=== PATIENT | female | born 1940 | race Caucasian/White ===

== ENCOUNTER 2020-02-24 03:12 | Outpatient (CLI) | payer MEDICARE, OTHER, SELFPAY ==
--- NOTE | 2020-02-24 | DI.US_ITS ---
EXAM: US RENAL CLINICAL HISTORY: RECURRENT UTI,H/O LYMPHOMA,N39.0 TECHNIQUE: Ultrasound of both kidneys performed using standard protocol. COMPARISON: No exams were available for comparison FINDINGS: RIGHT KIDNEY: Measures 9.1 cm in length. No cysts evident. Normal cortical thickness and corticomedullary different iation .No solid masses No intrarenal calculi nor hydronephrosis. LEFT KIDNEY: Measures 10.7 cm in length. No cysts evident. Normal cortical thickness and corticomedullary differe ntiaion. No solids masses. No intrarenal calculi nor hydonephrosis. URINARY BLADDER: Prevoid volume is 54 cc Postvoid volume is 65 cc It appears that the patient was not able to void adequately No evidence of obvious bladder mass or diverticuli. Ureterovesical jets: Both were not identified. IMPRESSION: 1. No significant ultrasound findings in the kidneys. 2. The amount of urine in the urinary bladder postvoid is higher than prevoid, this implying difficu lty in urination.. DATA REPOSITORY:
== END 2020-02-24 03:32 ==
PROVIDERS: PCP Internal Medicine; Visit Provider Nurse Practitioner Family
DX: N39.0 Urinary tract infection, site not specified (principal); R39.198 Other difficulties with micturition; Z85.79 Personal history of other malignant neoplasms of lymphoid, hematopoietic and related tissues
CPT/HCPCS: 76770

== ENCOUNTER → 2020-03-09 12:55 | Outpatient (BNVA) | payer MEDICARE, OTHER, SELFPAY | PROVIDERS: PCP Internal Medicine; Referring Provider Internal Medicine; Visit Provider Nurse Practitioner Gerontology | DX: R35.0 Frequency of micturition (principal); R31.29 Other microscopic hematuria; N39.0 Urinary tract infection, site not specified | CPT/HCPCS: 81003; 99204 ==

== ENCOUNTER 2020-03-09 19:13 | Outpatient (REF) | payer MEDICARE, OTHER, SELFPAY ==
[2020-03-09 17:27] LABS: Bilirubin Negative (Negative); Blood Moderate (Negative); Clarity Cloudy (Clear); Glucose Negative (Negative); Ketones Negative (Negative); Leukocyte Esterase Moderate (Negative); Nitrite Positive (Negative); Urobilinogen 0.2 EU/dL (Up TO 0.2)
[2020-03-09 17:38] LABS: Bacteria Many HPF (Negative); WBC >50 HPF (0-5)
[2020-03-09 17:39] LABS: C & S Indicated? C&S Done As Ordered
== END 2020-03-09 19:33 ==
LOC: LBN 19:13
PROVIDERS: PCP Internal Medicine; Visit Provider Nurse Practitioner Gerontology
DX: R35.0 Frequency of micturition (principal); R31.29 Other microscopic hematuria
CPT/HCPCS: 87077; 81003; 81015; 87086; 87186

== ENCOUNTER → 2020-04-04 10:38 | Outpatient (BNVA) | payer MEDICARE, OTHER, SELFPAY | PROVIDERS: PCP Nurse Practitioner Family; Referring Provider Internal Medicine; Visit Provider Nurse Practitioner Gerontology | DX: N39.0 Urinary tract infection, site not specified (principal); Z87.440 Personal history of urinary (tract) infections | CPT/HCPCS: 81003; 99214 ==

== ENCOUNTER 2020-04-04 22:08 | Outpatient (REF) | payer MEDICARE, OTHER, SELFPAY | END 2020-04-04 22:09 | disposition home or self-care (01) | LOC: NCHCN 22:08 | PROVIDERS: PCP Nurse Practitioner Family; Visit Provider Nurse Practitioner Gerontology | DX: N39.0 Urinary tract infection, site not specified (principal) | CPT/HCPCS: 87077; 87086; 87186 ==

== ENCOUNTER → 2020-04-25 15:02 | Outpatient (BNVA) | payer MEDICARE, OTHER, SELFPAY | PROVIDERS: PCP Nurse Practitioner Family; Referring Provider Nurse Practitioner Family; Visit Provider Nurse Practitioner Gerontology | DX: R35.0 Frequency of micturition (principal); N39.0 Urinary tract infection, site not specified | CPT/HCPCS: 81003; 99213 ==

== ENCOUNTER 2020-04-25 17:05 | Outpatient (REF) | payer MEDICARE, OTHER, SELFPAY | END 2020-04-25 17:06 | disposition home or self-care (01) | LOC: LBN 17:05 | PROVIDERS: PCP Nurse Practitioner Family; Visit Provider Nurse Practitioner Gerontology | DX: N39.0 Urinary tract infection, site not specified (principal) | CPT/HCPCS: 87086 ==

== ENCOUNTER → 2020-06-27 14:59 | Outpatient (BNVA) | payer MEDICARE, OTHER, SELFPAY | PROVIDERS: PCP Nurse Practitioner Family; Referring Provider Nurse Practitioner Family; Visit Provider Nurse Practitioner Gerontology | DX: N39.0 Urinary tract infection, site not specified (principal); R31.29 Other microscopic hematuria | CPT/HCPCS: 81003; 99214 ==

== ENCOUNTER 2020-06-27 16:22 | Outpatient (REF) | payer MEDICARE, OTHER, SELFPAY ==
[2020-06-27 16:17] LABS: Bilirubin Negative (Negative); Blood Small (Negative); Clarity Cloudy (Clear); Glucose Negative (Negative); Ketones Negative (Negative); Leukocyte Esterase Moderate (Negative); Nitrite Negative (Negative); Specific Gravity 1.025 (1.005-1.025); Urobilinogen 0.2 EU/dL (Up TO 0.2)
[2020-06-27 16:26] LABS: Bacteria Many HPF (Negative); C & S Indicated? C&S Done As Ordered; Casts Negative LPF (Negative); Crystals Negative HPF (Negative); Epithelial Cells Few HPF (Negative); Mucus Negative (Negative); WBC 20-50 HPF (0-5)
== END 2020-06-27 16:23 | disposition home or self-care (01) ==
LOC: LBN 16:22
PROVIDERS: PCP Nurse Practitioner Family; Visit Provider Nurse Practitioner Gerontology
DX: N39.0 Urinary tract infection, site not specified (principal); R31.29 Other microscopic hematuria
CPT/HCPCS: 81003; 81015; 87086

== ENCOUNTER → 2020-09-29 14:14 | Outpatient (BNVA) | payer MEDICARE, OTHER, SELFPAY | PROVIDERS: PCP Nurse Practitioner Family; Referring Provider Nurse Practitioner Family; Visit Provider Nurse Practitioner Gerontology | DX: R35.0 Frequency of micturition (principal); N39.0 Urinary tract infection, site not specified | CPT/HCPCS: 81003; 99214 ==

== ENCOUNTER 2020-09-29 17:22 | Outpatient (REF) | payer MEDICARE, OTHER, SELFPAY | END 2020-09-29 17:23 | disposition home or self-care (01) | LOC: LBN 17:22 | PROVIDERS: PCP Nurse Practitioner Family; Visit Provider Nurse Practitioner Gerontology | DX: N39.0 Urinary tract infection, site not specified (principal) | CPT/HCPCS: 87086 ==

== ENCOUNTER → 2021-02-14 15:28 | Outpatient (BNVA) | payer MEDICARE, OTHER, SELFPAY | PROVIDERS: PCP Nurse Practitioner Family; Visit Provider Nurse Practitioner Gerontology | DX: R35.0 Frequency of micturition (principal); N39.0 Urinary tract infection, site not specified | CPT/HCPCS: 81003; 99214 ==

== ENCOUNTER 2021-02-14 20:39 | Outpatient (REF) | payer MEDICARE, OTHER, SELFPAY | END 2021-02-14 20:40 | disposition home or self-care (01) | LOC: LBN 20:39 | PROVIDERS: PCP Nurse Practitioner Family; Visit Provider Nurse Practitioner Gerontology | DX: N39.0 Urinary tract infection, site not specified (principal) | CPT/HCPCS: 87077; 87086; 87186 ==

== ENCOUNTER → 2021-05-17 14:26 | Outpatient (BNVA) | payer MEDICARE, OTHER, SELFPAY | PROVIDERS: PCP Nurse Practitioner Family; Visit Provider Nurse Practitioner Gerontology | DX: R35.0 Frequency of micturition (principal); N39.0 Urinary tract infection, site not specified | CPT/HCPCS: 51798; 81003; 99214 ==

== ENCOUNTER 2021-05-17 18:33 | Outpatient (REF) | payer MEDICARE, OTHER, SELFPAY ==
[2021-05-17 21:12] LABS: Bilirubin Negative (Negative); Blood Moderate (Negative); Clarity Sl Cloudy (Clear); Glucose Negative (Negative); Ketones Negative (Negative); Leukocyte Esterase Small (Negative); Nitrite Negative (Negative); Specific Gravity 1.025 (1.005-1.025); Urobilinogen 0.2 EU/dL (Up TO 0.2)
[2021-05-17 21:19] LABS: Bacteria Moderate HPF (Negative); C & S Indicated? C&S Done As Ordered; Casts Negative LPF (Negative); Crystals Negative HPF (Negative); Epithelial Cells Few HPF (Negative); Mucus Trace (Negative)
== END 2021-05-17 18:34 | disposition home or self-care (01) ==
LOC: LBN 18:33
PROVIDERS: PCP Nurse Practitioner Acute Care; Visit Provider Nurse Practitioner Gerontology
DX: N39.0 Urinary tract infection, site not specified (principal); R35.0 Frequency of micturition
CPT/HCPCS: 87077; 81003; 81015; 87086

== ENCOUNTER → 2021-11-14 14:59 | Outpatient (BNVA) | payer MEDICARE, OTHER, SELFPAY | PROVIDERS: PCP Nurse Practitioner Acute Care; Referring Provider Nurse Practitioner Acute Care; Visit Provider Nurse Practitioner Gerontology | DX: N39.0 Urinary tract infection, site not specified (principal) | CPT/HCPCS: 51798; 81003; 99214 ==

== ENCOUNTER 2021-11-14 18:24 | Outpatient (REF) | payer MEDICARE, OTHER, SELFPAY | END 2021-11-14 18:25 | disposition home or self-care (01) | LOC: LBN 18:24 | PROVIDERS: PCP Nurse Practitioner Acute Care; Visit Provider Nurse Practitioner Gerontology | DX: N39.0 Urinary tract infection, site not specified (principal) | CPT/HCPCS: 87086 ==

== ENCOUNTER → 2022-05-15 15:31 | Outpatient (BNVA) | payer MEDICARE, OTHER, SELFPAY | PROVIDERS: PCP Nurse Practitioner Acute Care; Visit Provider Nurse Practitioner Gerontology | DX: Z09 Encounter for follow-up examination after completed treatment for conditions other than malignant neoplasm (principal); Z87.440 Personal history of urinary (tract) infections | CPT/HCPCS: 81003; 99213 ==

== ENCOUNTER → 2022-11-20 10:31 | Outpatient (BNVA) | payer MEDICARE, OTHER, SELFPAY | PROVIDERS: PCP Nurse Practitioner Acute Care; Referring Provider Nurse Practitioner Acute Care; Visit Provider Nurse Practitioner Gerontology | DX: N39.0 Urinary tract infection, site not specified (principal) | CPT/HCPCS: 81003; 99213 ==

== ENCOUNTER → 2023-05-22 09:42 | Outpatient (BNVA) | payer MEDICARE, OTHER, SELFPAY | PROVIDERS: PCP Nurse Practitioner Acute Care; Referring Provider Nurse Practitioner Acute Care; Visit Provider Nurse Practitioner Gerontology | DX: N39.0 Urinary tract infection, site not specified (principal) | CPT/HCPCS: 99213 ==

== ENCOUNTER 2023-09-29 17:06 | Inpatient (IN) | payer MEDICARE, OTHER, SELFPAY ==
[2023-09-29] VITALS (18 sets, daily range): BP systolic 137–170; BP diastolic 68–128; PULSE 71–100; RESP 16–18; TEMP 36.3–36.4; O2SAT 91–98
--- NOTE | 2023-09-29 17:30 | DI.RAD_ITS ---
Exam(s) XR KNEE RT 2V AP,LAT EXAM: XR KNEE RT 2V AP,LAT CLINICAL HISTORY: Fall, pain. TECHNIQUE: 2D digital imaging was performed. Three views. COMPARISON: No exams were available for comparison FINDINGS: BONES: Old proximal fibular fracture. Patella appears to be resected. No acute fracture is present. No bony destructive lesion is seen. Bones appear osteoporotic. JOINTS: Advanced degenerative changes at the medial femoral tibial joint. Flattening of the tibial s pines. No joint effusion is seen. SOFT TISSUE: Anterior soft tissue swelling. IMPRESSION: Degenerative and postsurgical changes. No acute abnormality. DATA REPOSITORY: RADIATION DOSE DELIVERED:
--- NOTE | 2023-09-29 17:30 | DI.CT_ITS ---
Exam(s) CT PELVIC WO EXAM: CT PELVIC WO CLINICAL HISTORY: Fall, L. hip pain. TECHNIQUE: Imaging Protocol: Axial computed tomography images with coronal and sagittal reformatted images were created and reviewed. CONTRAST MATERIAL: Oral: no COMPARISON: No exams were available for comparison FINDINGS: Bladder: Decompressed by Michael catheter. Bowel: No obstruction or bowel wall thickening. Sigmoid diverticulosis. Peritoneal cavity: No ascites, collection or mesenteric inflammatory response. Reproductive: Unremarkable. Bones: Nondisplaced intertrochanteric fracture of the left femur. No additional pelvic fractures. Adv anced degenerative changes of the lumbar spine. Soft tissues: Hematoma posterior to left femoral neck region. Fatty containing periumbilical herni a. IMPRESSION: Nondisplaced intertrochanteric fracture of the left femur. RADIATION DOSE DELIVERED: Total DLP DATA REPOSITORY: All CT scans at this facility are submitted to the National Radiology Data Registry (NRDR) Dose Index Registry (DIR) with the [employer] (ACR). RADIATION OPTIMIZATION: All CT scans at this facility use at least one of these dose optimization te chniques: automated exposure control; mA and/or kV adjustment per patient size (includes targeted exa ms where dose is matched to clinical indication); or iterative reconstruction.
--- NOTE | 2023-09-29 17:30 | DI.RAD_ITS ---
Exam(s) XR KNEE LT 2V AP,LAT EXAM: XR KNEE LT 2V AP,LAT CLINICAL HISTORY: Fall, pain. TECHNIQUE: 2D digital imaging was performed. Three views. COMPARISON: CR,XR XR KNEE RT 2V AP,LAT from 09/29/2023 FINDINGS: BONES: No acute fracture is present. No bony destructive lesion is seen. JOINTS: Total knee prosthesis is unremarkable. The knee is normally aligned. No joint effusion is se en. SOFT TISSUE: Normal. IMPRESSION: Total knee prosthesis. No acute abnormality. DATA REPOSITORY: RADIATION DOSE DELIVERED:
--- NOTE | 2023-09-29 17:30 | DI.CT_ITS ---
Exam(s) CT HEAD CERVICAL SPINE WO EXAM: CT HEAD CERVICAL SPINE WO CLINICAL HISTORY: Fall, ? anticoagulation. TECHNIQUE: Imaging Protocol: Axial computed tomography images with coronal and sagittal reformatted images were created and reviewed COMPARISON: No exams were available for comparison FINDINGS: Head CT Ventricles and Extra axial spaces: Normal in size and morphology for the patient's age. Hemorrhage: None. Cerebral parenchyma: No evidence of mass or acute infarct. Atrophy. White matter changes of small vessel disease. Midline shift: None. Brainstem/Cerebellum: Normal. Calvarium: Normal. Visualized Paranasal sinuses/Mastoids: Small amount of mucous retention in posterior right ethmoid ai r cell as well as right sphenoid sinus. Soft tissues: Hearing aids create mild artifact. Cervical Spine CT BONES: Vertebral body heights are maintained. Degenerative mild retrolisthesis at C3-4. there is no e vidence of acute cervical spine fracture. Right nasal fracture, likely old. Old fracture of the med ial right wall of the right orbit.. Degenerative disc changes and facet degenerative changes are seen . SOFT TISSUES: No paraspinal hematoma. The airway appears intact. IMPRESSION: Head CT: No acute abnormality. C-spine CT: Degenerative changes, no acute abnormality. RADIATION DOSE DELIVERED: Total DLP DATA REPOSITORY: All CT scans at this facility are submitted to the National Radiology Data Registry (NRDR) Dose Index Registry (DIR) with the [employer] (ACR). RADIATION OPTIMIZATION: All CT scans at this facility use at least one of these dose optimization te chniques: automated exposure control; mA and/or kV adjustment per patient size (includes targeted exa ms where dose is matched to clinical indication); or iterative reconstruction.
--- NOTE | 2023-09-29 17:48 | W.ED.GENAD ---
Discharge Plan Disposition Patient Disposition: Admit to [facility] Condition: Stable Discharge Details Chief Complaint: Fall/Non TraumaCriteria Clinical Impression: Recurrent urinary tract infection, Intertrochanteric fracture of left hip, PAF (paroxysmal atrial fibrillation) Admit Date/Time: 09/29/23 21:01 Admit Provider: Valentín Garay Attending Provider: Valentín Garay Primary Care Provider: Christine Brunner ED Provider: Helen Luo HPI General Mode of arrival: EMS. Date/Time Provider Initiated Documentation: 09/29/23 17:14. Limitations to Documentation: no limitations. Information obtained by: patient, family and EMS. HPI Narrative: MDM: In brief, this is an 83-year-old female patient presenting for evaluation after a fall. Differential includes but is not limited to head injury including intracranial hemorrhage due to the patient's anticoagulated status, certainly considered skull fracture and spinal fracture. I am most concerned for a left hip fracture, but also considered injury to the knees, dislocation, ligamentous injury, contusion. Reassuringly, this fall appears to be mechanical in nature, and the patient did not have any preceding dizziness, chest pain, or loss of consciousness to suggest syncope, orthostasis, ACS, arrhythmia, or stroke. We will obtain imaging to include CT of the head, C-spine, and pelvis. I will obtain x-ray imaging of the affected left hip, femur, and bilateral knees. I provided the patient with a dose of Tylenol for initial symptomatic management of pain. ED Course: I independently interpreted the laboratory studies, which show no significant leukocytosis, anemia, or thrombocytopenia. The chemistry panel is without evidence of electrolyte abnormality, kidney dysfunction, or liver injury. Troponin is negative, TSH is within normal limits, but the patient's UA does appear infectious. For this reason I did provide her with a dose of ceftriaxone. Independently interpreted the patient's imaging, she has evidence of an intertrochanteric fracture of the left femur. Her CT of her head and C-spine were without intracranial hemorrhage or acute fracture, and the x-rays of her knees showed no acute abnormalities to account for her pain. I reached out to the orthopedic team who has graciously agreed to perform surgery here in the hospital tomorrow. They do request that her apixaban be held and she be given a gram of TXA for bleeding prevention. I evaluated her EKG which does show atrial fibrillation. I reached out to the hospitalist team who is graciously accepted her for admission to their service for ongoing workup and management of her injury and her UTI. The patient remained hemodynamically appropriate while under my care, and she was transferred from this department to the floor without incident. Helen Luo MD HPI: This is an 83-year-old female patient with a past medical history significant for atrial fibrillation on apixaban, urinary tract infections, hypothyroidism, presenting for evaluation with EMS after a fall. The patient reports that she does not quite remember why she fell but thinks it was due to her large slippers that she was wearing, states that she tripped and landed on her bottom. She did not lose consciousness and this event was not preceded by any chest pain, dizziness, or loss of consciousness. She did not lose consciousness at any time during this event, is not sure if she struck her head or not. The patient is experiencing pain in her very low back and left hip, as well as her bilateral knees. Prior to this event she was in her normal state of health, she is not experiencing any other symptoms or complaints at this time. Exam: Gen: Awake and alert, in no apparent distress HEENT: Non-icteric sclera, pupils equal and reactive. Scalp is atraumatic Neck: Supple, no midline cervical spine tenderness or step-offs Lungs: No apparent respiratory distress, normal respiratory effort. CV: Appears well perfused, strong and symmetrical distal pulses Abdomen: Non-distended, soft, nontender to palpation MSK: No tenderness to palpation of the T or L-spine, patient has tenderness to palpation of the left hip, with decreased range of motion of the left lower extremity due to pain. The bilateral knees are tender to palpation but she has strong CSM's distal to both of those injuries, symmetrical bilaterally. Skin: Visualized skin without rashes, cyanosis. Neuro: no obvious focal deficits or facial asymmetry. Speaks in full, clear sentences. Psych: Appropriate for situation. Related Data Home Medications ?Medication ?Instructions ?Recorded ?Confirmed acetaminophen 650 mg 1,300 mg PO Q12H 11/17/19 06/14/23 tablet,extended release (Tylenol 8 Hour) ascorbate calcium (vitamin C) 500 600 mg PO DAILY 11/17/19 06/14/23 mg tablet cholecalciferol (vitamin D3) 10 10 mcg PO DAILY 11/17/19 06/14/23 mcg (400 unit) capsule cranberry 400 mg capsule 400 mg PO DAILY 11/17/19 06/14/23 ibuprofen 200 mg tablet 200 mg PO Q6H PRN 11/17/19 06/14/23 levothyroxine 200 mcg tablet 200 mcg PO DAILY 11/17/19 06/14/23 (Synthroid) selenium sulfide 2.25 % shampoo 1 applic topical .weekly 11/17/19 06/14/23 triamcinolone acetonide 0.1 % 1 applic topical BID 11/17/19 06/14/23 topical cream Al hyd-Mg tr-alg ac-sod bicarb 80 tab PO 05/15/22 06/14/23 mg-14.2 mg chewable tablet (Gaviscon) famotidine 20 mg tablet 20 mg PO BID 05/15/22 06/14/23 apixaban 5 mg tablet (Eliquis) 5 mg PO BID 11/20/22 06/14/23 cephalexin 250 mg tablet 125 mg (1/2 x 250 mg) PO QHS #45 11/20/22 06/14/23 tabs diltiazem HCl 120 mg capsule,24 120 mg PO DAILY 11/20/22 06/14/23 hr,extended release mecobalamin (vitamin B12) 1,000 1,000 mcg PO DAILY 05/22/23 06/14/23 mcg chewable tablet (B12 Active) ferrous sulfate 325 mg (65 mg 325 mg PO DAILY 06/14/23 06/14/23 iron) tablet (Feosol) Previous Rx's ?Medication ?Instructions ?Recorded cephalexin 250 mg tablet 125 mg (1/2 x 250 mg) PO QHS #45 11/20/22 tabs Allergies Allergy/AdvReac Type Severity Reaction Status Date / Time chocolate flavor Allergy red/itchy Verified 09/29/23 17:15 eyes lisinopril Allergy cough Verified 09/29/23 17:15 General Stated Complaint: Fall/Non TraumaCriteria SINCERE: 3 Course Vital Signs Vital signs: Vital Signs Temperature 36.4 C L 09/29/23 17:10 Pulse 71 09/29/23 17:10 Respiratory Rate 18 09/29/23 17:10 Blood Pressure 137/68 09/29/23 17:10 Pulse Oximetry 93 09/29/23 17:10 Temperature 36.4 C L 09/29/23 17:10 Temperature Source Skin 09/29/23 17:10 Pulse 71 09/29/23 17:10 Respiratory Rate 18 09/29/23 17:10 Blood Pressure 137/68 09/29/23 17:10 Blood Pressure Position Supine 09/29/23 17:10 Pulse Oximetry 93 09/29/23 17:10 Oxygen Delivery Method Room Air 09/29/23 17:10 Oxygen Flow Rate 0 09/29/23 17:10 Medical Decision Making Quality:SDOH Health Related Social Needs: No Data to Display PFSH All Active Problems (Updated 09/29/23 @ 23:20 by Helen Luo MD) Hypokalemia (Acute) PAF (paroxysmal atrial fibrillation) (Chronic) Intertrochanteric fracture of left hip (Acute 09/29/23) Cerumen impaction (Acute) Sensorineural hearing loss (Acute) Urinary frequency (Acute) Recurrent urinary tract infection (Acute) Medical History Blood glucose abnormal Abdominal tenderness Syncope Degeneration of lumbar intervertebral disc Cervical spondylosis Osteoarthritis Hyperkeratosis Psoriasis Dysuria Post-mastectomy lymphedema syndrome Hypertensive disorder Mixed hyperlipidemia Hypothyroidism Goiter Malignant lymphoma Carcinoma of thyroid Basal cell carcinoma Surgical History H/O basal cell carcinoma excision History of lymph node dissection of axilla H/O thyroidectomy H/O partial mastectomy History of left knee replacement Social History Smoking/Tobacco Use Status: Never Smoking risk assessment performed?: Yes Alcohol Intake: never Drug use: Never Substance use type: does not use Housing: house
[2023-09-29 18:11] LABS: Abs Immature Grans 0.12 10^3/uL (0.0-0.06); Absolute Basophil Count 0.07 10^3/uL (0.0-0.2); Absolute Eosinophil Count 0.04 10^3/uL (0.0-0.7); Absolute Lymphocyte Count 1.54 10^3/uL (1.2-3.4); Absolute Monocyte Count 1.18 10^3/uL (0.1-0.8); Basophils % 0.6 %; Eosinophils % 0.4 %; HCT 37.4 % (36.0-46.0); HGB 11.9 g/dL (11.2-15.7); Immature Grans % 1.1 %; Lymphocytes % 13.8 %; MCH 30.4 pg (27.0-33.0); MCHC 31.8 % (32.0-36.0); MCV 96 fL (80-95); MPV 10.5 fL (8.0-11.0); Monocytes % 10.6 %; Neutrophils % 73.5 %; Nucleated RBC 0.2 % (0.0-0.3); Platelet Count 344 10^3/uL (130-400); RBC 3.91 10^6/uL (3.93-5.22); RDW 17.2 % (11.7-14.6); RDW-SD 59.8 fL; WBC 11.17 10^3/uL (4.4-10.8)
[2023-09-29 18:12] LABS: Absolute Neutrophil Count 8.21 10^3/uL (1.2-6.7)
[2023-09-29 18:18] LABS: Prothrombin Time 10.4 sec (9.1-11.1)
[2023-09-29 18:19] LABS: Bilirubin Negative (Negative); Blood Moderate (Negative); Clarity Cloudy (Clear); Glucose Negative (Negative); Ketones Negative (Negative); Leukocyte Esterase Moderate (Negative); Nitrite Negative (Negative); Urobilinogen 0.2 mg/dL (Up to 0.2); pH 6.5 (5-8)
[2023-09-29 18:23] LABS: ALT 15 U/L (14-59); AST 19 U/L (15-37); Albumin 3.3 g/dL (3.4-5.0); Alkaline Phosphatase 100 U/L (46-116); Anion Gap 9.8 mmol/L (3-11); BUN 20 mg/dL (7-18); Bilirubin, Total 0.37 mg/dL (0.2-1.0); CO2 28.2 mmol/L (21.0-32.0); CREATININE 1.1 mg/dL (0.55-1.02); Calcium 9.3 mg/dL (8.5-10.1); Chloride 105 mmol/L (98-107); Estimated GFR 49.55 (mL/min/1.73m2); Glucose 125 mg/dL (74-106); Magnesium 1.8 mg/dL (1.8-2.4); Potassium 3.3 mmol/L (3.5-5.1); Sodium 143 mmol/L (136-145); Total Protein 7.7 g/dL (6.4-8.2); Troponin I < 50 ng/L (< or =60)
[2023-09-29 18:27] LABS: Bacteria Rare HPF (Negative); C & S Indicated? Yes; Crystals Negative HPF (Negative); Epithelial Cells Few HPF (Negative); Mucus Negative (Negative); RBC 20-50 HPF (0-2); WBC >50 HPF (0-5)
--- NOTE | 2023-09-29 20:16 | DI.RAD_ITS ---
Exam(s) XR HIP LT AP LAT ONLY EXAM: XR HIP LT AP LAT ONLY CLINICAL HISTORY: Fall, R. hip pain. TECHNIQUE: 2D digital imaging was performed. Two views. COMPARISON: CT CT PELVIC WO from 09/29/2023 FINDINGS: BONES: Nondisplaced fracture of the intertrochanteric region of left femur. No bony destructive lesi on is seen. JOINTS: No dislocation present. Hip joint space is maintained. Mild acetabular spurring. SOFT TISSUE: Normal. IMPRESSION: Nondisplaced intertrochanteric fracture of the left femur. DATA REPOSITORY: RADIATION DOSE DELIVERED:
--- NOTE | 2023-09-29 20:23 | W.ORTHOCONSU ---
Date of service: 09/30/23 Time of Service: 10:59 Assessment and Plan Assessment and plan (1) Intertrochanteric fracture of left hip: Status: Acute Assessment and plan: 83 year old female with Left intertrochanteric hip fx Medical admission and optimization for surgery Hold ELQ. 1g TXA now to minimize bleeding. TEDs and/or SCDs. Plan on surgery tomorrow: Left hip intramedullary nailing Will d/w hospitalist and [employer] Reviewed with ER doctor Update?reviewed injury and treatment options with patient, son, and [id number]. Isolated left hip injury. Previous ambulatory without assist device. No pre-existing left hip problems. Low back bilateral knee discomfort chronically from prior injuries and surgeries. Some complaints of left shoulder discomfort although has good range of motion and no notable ecchymosis or edema. Will minimize bleeding/bruising risk with additional 1 g TXA prior to procedure as well as local anesthetic with bupivacaine about the surgical sites. The risks, benefits, and alternatives were thoroughly discussed. Patient was counseled regarding pain management, expected postoperative course, and recovery timeline. All questions were answered. Informed consent was obtained. Patient and family agree and understand treatment plan. PFSH All Active Problems Hypokalemia (Acute) PAF (paroxysmal atrial fibrillation) (Chronic) Intertrochanteric fracture of left hip (Acute 09/29/23) Cerumen impaction (Acute) Sensorineural hearing loss (Acute) Urinary frequency (Acute) Recurrent urinary tract infection (Acute) Medical History Blood glucose abnormal Abdominal tenderness Syncope Degeneration of lumbar intervertebral disc Cervical spondylosis Osteoarthritis Hyperkeratosis Psoriasis Dysuria Post-mastectomy lymphedema syndrome Hypertensive disorder Mixed hyperlipidemia Hypothyroidism Goiter Malignant lymphoma Carcinoma of thyroid Basal cell carcinoma Surgical History H/O basal cell carcinoma excision History of lymph node dissection of axilla H/O thyroidectomy H/O partial mastectomy History of left knee replacement Social History Smoking/Tobacco Use Status: Never Smoking risk assessment performed?: Yes Alcohol Intake: never Drug use: Never Substance use type: does not use Housing: house Results Last Vital Signs Temp 97.5 F L 09/29/23 17:10 Pulse 71 09/29/23 17:10 Resp 18 09/29/23 17:10 BP 137/68 09/29/23 17:10 Pulse Ox 93 09/29/23 17:10 Labs 09/30/23 06:12 09/30/23 06:12 Labs: Laboratory Results - last 24 hr 09/29/23 09/29/23 17:54 18:10 WBC 11.17 H RBC 3.91 L Hgb 11.9 Hct 37.4 MCV 96 H MCH 30.4 MCHC 31.8 L RDW 17.2 H Plt Count 344 MPV 10.5 Immature Gran % 1.1 Neutrophils % 73.5 Lymphocytes % 13.8 Monocytes % 10.6 Eosinophils % 0.4 Basophils % 0.6 Nucleated RBC % 0.2 Absolute Neutrophils 8.21 H Absolute Lymphocytes 1.54 Absolute Monocytes 1.18 H Absolute Eosinophils 0.04 Absolute Basophils 0.07 PT 10.4 INR 1.0 Sodium 143 Potassium 3.3 L Chloride 105 Carbon Dioxide 28.2 Anion Gap 9.8 BUN 20 H Creatinine 1.1 H Est GFR (CKD-EPI 2020) 49.55 Glucose 125 H Calcium 9.3 Magnesium 1.8 Total Bilirubin 0.37 AST 19 ALT 15 Alkaline Phosphatase 100 Troponin I < 50 Total Protein 7.7 Albumin 3.3 L Urine Color Yellow Urine Clarity Cloudy Urine pH 6.5 Ur Specific [place] 1.020 Urine Protein 100 H Urine Ketones Negative Urine Blood Moderate H Urine Nitrite Negative Urine Bilirubin Negative Urine Urobilinogen 0.2 Ur Leukocyte Esterase Moderate H Urine RBC 20-50 H Urine WBC >50 H Ur Epithelial Cells Few Urine Crystals Negative Urine Bacteria Rare Urine Mucus Negative Ur Culture Indicated? Yes Urine Glucose Negative
[2023-09-29] MEDS: cefTRIAXone 1 GM/50 ML BAG IVPB (20:30)
--- NOTE | 2023-09-29 20:49 | DI.VRAD_ITS ---
PROCEDURE INFORMATION: Exam: CT Head Without Contrast Exam date and time: 09/29/2023 7:25 PM Age: 83 years old Clinical indication: Fall TECHNIQUE: Imaging protocol: Computed tomography of the head without contrast. COMPARISON: No relevant prior studies available. FINDINGS: Brain: A few scattered small areas of decreased density in the periventricular white matter which are likely secondary to chronic ischemia from microvascular change. No acute intracranial hemorrhage. Diffuse cerebral atrophy. Cerebral ventricles: Ventricular prominence in this patient with diffuse cerebral atrophy. Paranasal sinuses: Partial right sphenoid and posterior right ethmoid sinusitis. Mastoid air cells: Normally aerated mastoid air cells. Bones: No acute fracture. Soft tissues: Unremarkable. Vasculature: Arterial calcifications. IMPRESSION: 1. No acute fracture. 2. No acute intracranial findings. PROCEDURE INFORMATION: Exam: CT Cervical Spine Without Contrast Exam date and time: 09/29/2023 7:25 PM Age: 83 years old Clinical indication: Fall TECHNIQUE: Imaging protocol: Computed tomography of the cervical spine without contrast. COMPARISON: No relevant prior studies available. FINDINGS: Bones: No acute fracture. No subluxation. Slight degenerative retrolisthesis of C4 with respect to C3. No significant disc protrusion. No severe spinal canal stenosis. Cervical spine multilevel degenerative / spondylitic changes with multilevel neural foraminal narrowing. Lungs: The majority a lung apices are not included on the images. Soft tissues: Unremarkable. IMPRESSION: No acute fracture or subluxation. Dictated and Authenticated by: Kenneth Hendricks MD. Ordering:DWIGHT Huber MD
--- NOTE | 2023-09-29 20:54 | W.PM.HP.N ---
Date of service: 09/29/23 Time of Service: 20:54 Assessment and Plan Assessment and plan (1) Intertrochanteric fracture of left hip: Start date: 09/29/23 Status: Acute Assessment and plan: This is an 83-year-old lady with mechanical fall at home sustaining comminuted left intertrochanteric femoral fracture which appears nondisplaced. She is scheduled for repair in the morning. Eliquis was held and orthopedics consultation is in place from the ED. She will be n.p.o. after midnight. She appears to have no decompensation of her chronic medical problems including atrial fibrillation on anticoagulation. She is a full code. Qualifiers: Encounter type: initial encounter Fracture alignment: nondisplaced Fracture type: closed Qualified Code(s): S72.145A - Nondisplaced intertrochanteric fracture of left femur, initial encounter for closed fracture (2) Recurrent urinary tract infection: Start date: 09/29/23 Status: Acute Assessment and plan: Patient does appear to have a urinary tract infection by urinalysis with Rocephin given in the ED and this will be continued. She does not have any urinary symptoms. (3) Hypokalemia: Start date: 09/29/23 Status: Acute Assessment and plan: Repleted with IV potassium and patient not chronically on diuretic having some cardiac disease. This may be dietary. Trend labs and increase potassium diet at the [place]. (4) PAF (paroxysmal atrial fibrillation): Status: Chronic Assessment and plan: Patient has irregular rhythm presently and apixaban is being held. This will be monitored with cardiac monitoring. Patient is a full code. (5) Hypertensive disorder: Assessment and plan: Continue outpatient medical therapy. Qualifiers: Hypertension type: primary hypertension Qualified Code(s): I10 - Essential (primary) hypertension (6) Hypothyroidism: Assessment and plan: Continue outpatient medical therapy and check TSH. Qualifiers: Hypothyroidism type: acquired Qualified Code(s): E03.9 - Hypothyroidism, unspecified History of Present Illness History of Present Illness Chief Complaint: Mechanical fall with left hip pain Narrative: This is an 83-year-old female patient who states that she lives alone having tripped on her large slippers and hit her bottom with left hip pain after her fall. She was transferred to the ED via EMS. She did not hit her head and she is on apixaban chronically for atrial fibrillation. Imaging in the ED did not reveal any acute cerebral hemorrhage but did reveal comminuted, nondisplaced left intertrochanteric fracture of the femur. Her Eliquis was held and orthopedics did plan on surgery in the morning. Her cardiac evaluation was negative having atrial fibrillation and negative troponins. Patient very hard of hearing and offered no further history. She denies any dizziness or presyncopal symptoms when she tripped and fell at home. She has no focal neurological complaints other than severely decreased hearing acuity. Pain was managed well with patient on bedrest and comfortable at the time of my exam. Her son has given his number for contact if needed. She is a full code. Review of Systems Narrative: 13 point review of systems otherwise unrevealing or stable. PFSH All Active Problems Hypokalemia (Acute) PAF (paroxysmal atrial fibrillation) (Chronic) Intertrochanteric fracture of left hip (Acute 09/29/23) Cerumen impaction (Acute) Sensorineural hearing loss (Acute) Urinary frequency (Acute) Recurrent urinary tract infection (Acute) Medical History Blood glucose abnormal Abdominal tenderness Syncope Degeneration of lumbar intervertebral disc Cervical spondylosis Osteoarthritis Hyperkeratosis Psoriasis Dysuria Post-mastectomy lymphedema syndrome Hypertensive disorder Mixed hyperlipidemia Hypothyroidism Goiter Malignant lymphoma Carcinoma of thyroid Basal cell carcinoma Surgical History H/O basal cell carcinoma excision History of lymph node dissection of axilla H/O thyroidectomy H/O partial mastectomy History of left knee replacement Social History Smoking/Tobacco Use Status: Never Smoking risk assessment performed?: Yes Alcohol Intake: never Drug use: Never Substance use type: does not use Housing: house Meds Allergies and Home Medications Allergies Allergy/AdvReac Type Severity Reaction Status Date / Time chocolate flavor Allergy red/itchy Verified 09/29/23 17:15 eyes lisinopril Allergy cough Verified 09/29/23 17:15 Home Medications ?Medication ?Instructions ?Recorded ?Confirmed ?Type acetaminophen 650 mg 1,300 mg PO Q12H 11/17/19 06/14/23 History tablet,extended release (Tylenol 8 Hour) ascorbate calcium (vitamin C) 500 600 mg PO DAILY 11/17/19 06/14/23 History mg tablet cholecalciferol (vitamin D3) 10 10 mcg PO DAILY 11/17/19 06/14/23 History mcg (400 unit) capsule cranberry 400 mg capsule 400 mg PO DAILY 11/17/19 06/14/23 History ibuprofen 200 mg tablet 200 mg PO Q6H PRN 11/17/19 06/14/23 History levothyroxine 200 mcg tablet 200 mcg PO DAILY 11/17/19 06/14/23 History (Synthroid) selenium sulfide 2.25 % shampoo 1 applic topical .weekly 11/17/19 06/14/23 History triamcinolone acetonide 0.1 % 1 applic topical BID 11/17/19 06/14/23 History topical cream Al hyd-Mg tr-alg ac-sod bicarb 80 tab PO 05/15/22 06/14/23 History mg-14.2 mg chewable tablet (Gaviscon) famotidine 20 mg tablet 20 mg PO BID 05/15/22 06/14/23 History apixaban 5 mg tablet (Eliquis) 5 mg PO BID 11/20/22 06/14/23 History cephalexin 250 mg tablet 125 mg (1/2 x 250 mg) PO QHS #45 11/20/22 06/14/23 Rx tabs diltiazem HCl 120 mg capsule,24 120 mg PO DAILY 11/20/22 06/14/23 History hr,extended release mecobalamin (vitamin B12) 1,000 1,000 mcg PO DAILY 05/22/23 06/14/23 History mcg chewable tablet (B12 Active) ferrous sulfate 325 mg (65 mg 325 mg PO DAILY 06/14/23 06/14/23 History iron) tablet (Feosol) Exam Narrative Exam Narrative: General: Patient appears appropriate for age, very hard of hearing, alert and oriented x 3 as best can be ascertained with her hearing acuity issues. She is comfortable lying still in bed but does complain of exquisite left hip pain with any movement. HEENT: Normocephalic, eyes with pupils equal and reactive to light symmetrically, extraocular movement intact and sclera anicteric. Oropharynx with moist [place]. Neck: Supple without JVD. Lungs: Fair aeration clear to oscillation percussion examined the patient supine and not able to sit up. Back not examined. Breast: Exam deferred. Heart: Irregularly irregular rhythm with normal rate. No appreciable murmur or gallop with distant heart sounds. Abdomen: Slightly obese contour, soft and nontender to palpation without palpable hepatosplenomegaly. Bowel sounds positive all quadrants. Genitalia/rectal: Exam deferred. Skin: Normal color, warm and dry. Extremities: Without clubbing, cyanosis or pitting edema with no edema both lower extremities. Left hip exquisitely tender to any movement. Good cap refill required left lower extremity with foot slightly turned outward and shortened leg. Neuro: Cranial nerves II through XII gross intact with marked decreased hearing acuity, no focalized motor deficits. No tremor. Psych: Normal affect and mood. No normal thought processes manifested. Remote memory intact with recent memory were difficult to ascertain with decreased hearing acuity the patient appears to remember events at home when interviewed by the ED provider. Results Imaging Imaging Studies: Exam: CT Pelvis Without Contrast, Skeleton Exam date and time: 09/29/2023 7:33 PM Age: 83 years old Clinical indication: Condition or disease; Other: Fall, lt hip pain TECHNIQUE: Imaging protocol: Computed tomography of the pelvis without contrast. Exam focused on the skeleton. COMPARISON: US RENAL 02/24/2020 10:28 AM FINDINGS: Limitations: No soft tissue algorithm imaging was provided. Intestine: There is sigmoid diverticulosis but no evidence of diverticulitis or colitis through the visualized portion of the colon. Urinary bladder: The urinary bladder is largely collapsed around a Michael catheter. Bones/joints: There is a comminuted acute essentially nondisplaced intertrochanteric fracture through the proximal left femur. No additional acute fracture or dislocation is seen in the pelvis or at the hip joints. There is prominent degenerative change all visualized lower lumbar levels with loss of disc height, vacuum disc deformities, marginal osteophytes, and facet arthrosis. Soft tissues: There is a 4.6 cm x 5.5 cm fat containing right paramidline ventral hernia at the umbilicus. There is a 2.7 cm x 5.7 cm x 5.3 cm soft tissue hematoma posterior to the proximal left femur. IMPRESSION: Comminuted acute essentially nondisplaced intertrochanteric fracture through the proximal left femur Exam: XR Left Hip Exam date and time: 09/29/2023 8:07 PM Age: 83 years old Clinical indication: Other: Fall TECHNIQUE: Imaging protocol: Radiologic exam of the left hip. Views: 2 or 3 views hip with pelvis when performed. COMPARISON: CT PELVIC WO 09/29/2023 7:33 PM FINDINGS: Bones/joints: Coned-down AP and lateral views of the left hip joint are submitted. A known comminuted acute nondisplaced intertrochanteric fracture is very poorly demonstrated by the plain film exam. Soft tissues: A known soft tissue hematoma posterior to the left hip joint is not visualized. IMPRESSION: Known comminuted acute nondisplaced intertrochanteric fracture very poorly demonstrated by the plain film exam. Exam: XR Left Knee Exam date and time: 09/29/2023 7:57 PM Age: 83 years old Clinical indication: Other: Fall TECHNIQUE: Imaging protocol: Radiologic exam of the left knee. Views: 1 or 2 views. COMPARISON: No relevant prior studies available. FINDINGS: Bones/joints: There is a left knee arthroplasty prosthesis in-situ. There is no evidence of hardware breakage or loosening. There is mild diffuse osteopenia. No acute fracture is seen. Soft tissues: There is apparent soft tissue swelling along the medial aspect of the distal thigh and through the region of the knee. IMPRESSION: Prior left knee arthroplasty. No acute fracture or dislocation seen. Exam: XR Right Knee Exam date and time: 09/29/2023 7:49 PM Age: 83 years old Clinical indication: Other: Fall TECHNIQUE: Imaging protocol: Radiologic exam of the right knee. Views: 3 views. COMPARISON: No relevant prior studies available. FINDINGS: Bones/joints: There is mild diffuse osteopenia. There is an old well-healed fracture through the proximal shaft of the right fibula. No acute fracture or dislocation is seen at the right knee. The patella is not visualized on the right. Prior surgical resection ? Correlation with procedure history is recommended. There is loss of joint space along the medial and lateral patellofemoral compartments with marginal osteophytes in keeping with osteoarthritis. Soft tissues: There is soft tissue swelling along the anterior and medial aspect of the right knee. IMPRESSION: 1. Old fracture through the proximal right fibula. 2. Absent patella. 3. No acute fracture or dislocation seen at the right knee. Exam: CT Head Without Contrast Exam date and time: 09/29/2023 7:25 PM Age: 83 years old Clinical indication: Fall TECHNIQUE: Imaging protocol: Computed tomography of the head without contrast. COMPARISON: No relevant prior studies available. FINDINGS: Brain: A few scattered small areas of decreased density in the periventricular white matter which are likely secondary to chronic ischemia from microvascular change. No acute intracranial hemorrhage. Diffuse cerebral atrophy. Cerebral ventricles: Ventricular prominence in this patient with diffuse cerebral atrophy. Paranasal sinuses: Partial right sphenoid and posterior right ethmoid sinusitis. Mastoid air cells: Normally aerated mastoid air cells. Bones: No acute fracture. Soft tissues: Unremarkable. Vasculature: Arterial calcifications. IMPRESSION: 1. No acute fracture. 2. No acute intracranial findings. PROCEDURE INFORMATION: Exam: CT Cervical Spine Without Contrast Exam date and time: 09/29/2023 7:25 PM Age: 83 years old Clinical indication: Fall TECHNIQUE: Imaging protocol: Computed tomography of the cervical spine without contrast. COMPARISON: No relevant prior studies available. FINDINGS: Bones: No acute fracture. No subluxation. Slight degenerative retrolisthesis of C4 with respect to C3. No significant disc protrusion. No severe spinal canal stenosis. Cervical spine multilevel degenerative / spondylitic changes with multilevel neural foraminal narrowing. Lungs: The majority a lung apices are not included on the images. Soft tissues: Unremarkable. IMPRESSION: No acute fracture or subluxation. Labs 09/29/23 17:54 09/29/23 17:54 Labs: Laboratory Results - last 24 hr 08/18/24 08/18/24 17:54 18:10 WBC 11.17 H RBC 3.91 L Hgb 11.9 Hct 37.4 MCV 96 H MCH 30.4 MCHC 31.8 L RDW 17.2 H Plt Count 344 MPV 10.5 Immature Gran % 1.1 Neutrophils % 73.5 Lymphocytes % 13.8 Monocytes % 10.6 Eosinophils % 0.4 Basophils % 0.6 Nucleated RBC % 0.2 Absolute Neutrophils 8.21 H Absolute Lymphocytes 1.54 Absolute Monocytes 1.18 H Absolute Eosinophils 0.04 Absolute Basophils 0.07 PT 10.4 INR 1.0 Sodium 143 Potassium 3.3 L Chloride 105 Carbon Dioxide 28.2 Anion Gap 9.8 BUN 20 H Creatinine 1.1 H Est GFR (CKD-EPI 2020) 49.55 Glucose 125 H Calcium 9.3 Magnesium 1.8 Total Bilirubin 0.37 AST 19 ALT 15 Alkaline Phosphatase 100 Troponin I < 50 Total Protein 7.7 Albumin 3.3 L Urine Color Yellow Urine Clarity Cloudy Urine pH 6.5 Ur Specific [place] 1.020 Urine Protein 100 H Urine Ketones Negative Urine Blood Moderate H Urine Nitrite Negative Urine Bilirubin Negative Urine Urobilinogen 0.2 Ur Leukocyte Esterase Moderate H Urine RBC 20-50 H Urine WBC >50 H Ur Epithelial Cells Few Urine Crystals Negative Urine Bacteria Rare Urine Mucus Negative Ur Culture Indicated? Yes Urine Glucose Negative Last Vital Signs Temp 36.4 C L 09/29/23 17:10 Pulse 71 09/29/23 17:10 Resp 18 09/29/23 17:10 BP 137/68 09/29/23 17:10 Pulse Ox 93 09/29/23 17:10 Time Spent Time spent with Patient: >75 minutes Time was spent: preparing to see the patient(eg.review tests), obtaining and/or reviewing separately otained hiistory, ordering medications,tests, procedures, referring, communicating with other health manager home healthcare, indepentently interpreting results and care coordination
[2023-09-29] MEDS: Tranexamic Acid 1,000 MG/10 ML VIAL 1000 MG IVP (21:00)
--- NOTE | 2023-09-29 21:15 | RT.EKG_ITS ---
APPROVED REPORT Exam: Resting ECG Reason for Exam: A-fib, surgical clearance Patient Location: E HR:99 bpm ECG Measurements Heart Rate 99 [place]IS [place] [id number] P [id number] QRSd 86 QRS -4 QT 373 T 8 QTc 480 Conclusion Atrial fibrillation, V-rate 83-142 No STEMI
--- NOTE | 2023-09-29 21:21 | DI.VRAD_ITS ---
PROCEDURE INFORMATION: Exam: CT Pelvis Without Contrast, Skeleton Exam date and time: 09/29/2023 7:33 PM Age: 83 years old Clinical indication: Condition or disease; Other: Fall, lt hip pain TECHNIQUE: Imaging protocol: Computed tomography of the pelvis without contrast. Exam focused on the skeleton. COMPARISON: US RENAL 02/24/2020 10:28 AM FINDINGS: Limitations: No soft tissue algorithm imaging was provided. Intestine: There is sigmoid diverticulosis but no evidence of diverticulitis or colitis through the visualized portion of the colon. Urinary bladder: The urinary bladder is largely collapsed around a Michael catheter. Bones/joints: There is a comminuted acute essentially nondisplaced intertrochanteric fracture through the proximal left femur. No additional acute fracture or dislocation is seen in the pelvis or at the hip joints. There is prominent degenerative change all visualized lower lumbar levels with loss of disc height, vacuum disc deformities, marginal osteophytes, and facet arthrosis. Soft tissues: There is a 4.6 cm x 5.5 cm fat containing right paramidline ventral hernia at the umbilicus. There is a 2.7 cm x 5.7 cm x 5.3 cm soft tissue hematoma posterior to the proximal left femur. IMPRESSION: Comminuted acute essentially nondisplaced intertrochanteric fracture through the proximal left femur. Dictated and Authenticated by: Agustín Snider MD. Ordering:DWIGHT Huber MD
--- NOTE | 2023-09-29 21:24 | DI.VRAD_ITS ---
PROCEDURE INFORMATION: Exam: XR Left Knee Exam date and time: 09/29/2023 7:57 PM Age: 83 years old Clinical indication: Other: Fall TECHNIQUE: Imaging protocol: Radiologic exam of the left knee. Views: 1 or 2 views. COMPARISON: No relevant prior studies available. FINDINGS: Bones/joints: There is a left knee arthroplasty prosthesis in-situ. There is no evidence of hardware breakage or loosening. There is mild diffuse osteopenia. No acute fracture is seen. Soft tissues: There is apparent soft tissue swelling along the medial aspect of the distal thigh and through the region of the knee. IMPRESSION: Prior left knee arthroplasty. No acute fracture or dislocation seen. Dictated and Authenticated by: Agustín Snider MD. Ordering:DWIGHT Huber MD
--- NOTE | 2023-09-29 21:27 | DI.VRAD_ITS ---
PROCEDURE INFORMATION: Exam: XR Right Knee Exam date and time: 09/29/2023 7:49 PM Age: 83 years old Clinical indication: Other: Fall TECHNIQUE: Imaging protocol: Radiologic exam of the right knee. Views: 3 views. COMPARISON: No relevant prior studies available. FINDINGS: Bones/joints: There is mild diffuse osteopenia. There is an old well-healed fracture through the proximal shaft of the right fibula. No acute fracture or dislocation is seen at the right knee. The patella is not visualized on the right. Prior surgical resection ? Correlation with procedure history is recommended. There is loss of joint space along the medial and lateral patellofemoral compartments with marginal osteophytes in keeping with osteoarthritis. Soft tissues: There is soft tissue swelling along the anterior and medial aspect of the right knee. IMPRESSION: 1. Old fracture through the proximal right fibula. 2. Absent patella. 3. No acute fracture or dislocation seen at the right knee. Dictated and Authenticated by: Agustín Snider MD. Ordering:DWIGHT Huber MD
--- NOTE | 2023-09-29 21:29 | DI.VRAD_ITS ---
PROCEDURE INFORMATION: Exam: XR Left Hip Exam date and time: 09/29/2023 8:07 PM Age: 83 years old Clinical indication: Other: Fall TECHNIQUE: Imaging protocol: Radiologic exam of the left hip. Views: 2 or 3 views hip with pelvis when performed. COMPARISON: CT PELVIC WO 09/29/2023 7:33 PM FINDINGS: Bones/joints: Coned-down AP and lateral views of the left hip joint are submitted. A known comminuted acute nondisplaced intertrochanteric fracture is very poorly demonstrated by the plain film exam. Soft tissues: A known soft tissue hematoma posterior to the left hip joint is not visualized. IMPRESSION: Known comminuted acute nondisplaced intertrochanteric fracture very poorly demonstrated by the plain film exam. Dictated and Authenticated by: Agustín Snider MD. Ordering:DWIGHT Huber MD
[2023-09-29] MEDS: fentaNYL 100 MCG/2 ML VIAL 50 MCG IVP (21:38)
--- NOTE | 2023-09-29 21:43 | W.PC.ACHO ---
Registration Status: Primary Language: Preferred Language: ED Information & Data Chief Complaint Fall/Non TraumaCriteria 09/29/23 18:28 Chief Complaint Fall/Non TraumaCriteria 09/29/23 17:51 Triage Note wearing oversized socks and 09/29/23 17:10 slipped landing on left side . On eliquis. c/o left hip & right knee pain. Medical / Surgical History (Last Reviewed 09/29/23 @ 20:54 by Valentín Garay) Blood glucose abnormal Abdominal tenderness Syncope Degeneration of lumbar intervertebral disc Cervical spondylosis Osteoarthritis Hyperkeratosis Psoriasis Dysuria Post-mastectomy lymphedema syndrome Hypertensive disorder Mixed hyperlipidemia Hypothyroidism Goiter Malignant lymphoma Carcinoma of thyroid Basal cell carcinoma (Last Reviewed 09/29/23 @ 20:54 by Valentín Garay) H/O basal cell carcinoma excision History of lymph node dissection of axilla H/O thyroidectomy H/O partial mastectomy History of left knee replacement Most Recent Vital Signs Temperature 36.4 C L 09/29/23 17:10 Temperature Source Skin 09/29/23 17:10 Pulse 89 09/29/23 21:24 Respiratory Rate 18 09/29/23 17:10 Respiratory Effort Normal, Non-Labored 09/29/23 18:28 Blood Pressure 165/91 H 09/29/23 21:24 Blood Pressure Mean 117 09/29/23 21:24 Blood Pressure Position Supine 09/29/23 17:10 Pulse Oximetry 96 09/29/23 21:30 Oxygen Delivery Method Room Air 09/29/23 17:10 Oxygen Flow Rate 0 09/29/23 17:10 Allergies chocolate flavor Allergy (Verified 09/29/23 17:15) red/itchy eyes lisinopril Allergy (Verified 09/29/23 17:15) cough Precautions Isolation Standard precaution 09/29/23 18:28 IV IV Catheter Type [Left Peripheral IV Antecubital] IV Catheter Gauge [Left 18 Antecubital] Diet Orders Category Date Time Status Heart Healthy Eating [DIET] Nutrition 09/30/23 Breakfast Ordered Diagnostics 09/29/23 09/29/23 09/29/23 Range/Units 21:20 18:10 17:54 WBC 11.17 H (4.4-10.8) 10^3/uL RBC 3.91 L (3.93-5.22) 10^6/uL Hgb 11.9 (11.2-15.7) g/dL Hct 37.4 (36.0-46.0) % MCV 96 H (80-95) fL MCH 30.4 (27.0-33.0) pg MCHC 31.8 L (32.0-36.0) % RDW 17.2 H (11.7-14.6) % Plt Count 344 (130-400) 10^3/uL MPV 10.5 (8.0-11.0) fL Immature Gran % 1.1 % Neutrophils % 73.5 % Lymphocytes % 13.8 % Monocytes % 10.6 % Eosinophils % 0.4 % Basophils % 0.6 % Nucleated RBC % 0.2 (0.0-0.3) % Absolute Neutrophils 8.21 H (1.2-6.7) 10^3/uL Absolute Lymphocytes 1.54 (1.2-3.4) 10^3/uL Absolute Monocytes 1.18 H (0.1-0.8) 10^3/uL Absolute Eosinophils 0.04 (0.0-0.7) 10^3/uL Absolute Basophils 0.07 (0.0-0.2) 10^3/uL PT 10.4 (9.1-11.1) sec INR 1.0 (0.9-1.1) Sodium 143 (136-145) mmol/L Potassium 3.3 L (3.5-5.1) mmol/L Chloride 105 (98-107) mmol/L Carbon Dioxide 28.2 (21.0-32.0) mmol/L Anion Gap 9.8 (3-11) mmol/L BUN 20 H (7-18) mg/dL Creatinine 1.1 H (0.55-1.02) mg/dL Est GFR (CKD-EPI 2020) 49.55 (mL/min/1.73m2) Glucose 125 H (74-106) mg/dL Calcium 9.3 (8.5-10.1) mg/dL Magnesium 1.8 (1.8-2.4) mg/dL Total Bilirubin 0.37 (0.2-1.0) mg/dL AST 19 (15-37) U/L ALT 15 (14-59) U/L Alkaline Phosphatase 100 (46-116) U/L Troponin I Pending < 50 (< or =60) ng/L Total Protein 7.7 (6.4-8.2) g/dL Albumin 3.3 L (3.4-5.0) g/dL TSH Pending Urine Color Yellow (Yellow) Urine Clarity Cloudy (Clear) Urine pH 6.5 (5-8) Ur Specific [place] 1.020 (1.005-1.025) Urine Protein 100 H (Neg-Trace) mg/dL Urine Ketones Negative (Negative) mg/dL Urine Blood Moderate H (Negative) Urine Nitrite Negative (Negative) Urine Bilirubin Negative (Negative) Urine Urobilinogen 0.2 (Up to 0.2) mg/dL Ur Leukocyte Esterase Moderate H (Negative) Urine RBC 20-50 H (0-2) HPF Urine WBC >50 H (0-5) HPF Ur Epithelial Cells Few (Negative) HPF Urine Crystals Negative (Negative) HPF Urine Bacteria Rare (Negative) HPF Urine Mucus Negative (Negative) Ur Culture Indicated? Yes Urine Glucose Negative (Negative) mg/dL 09/29/23 18:10 Urine Culture - Pending Urine - Reflex from Ua Intake and Output - 24 Hour Total 09/29/23 16:54 thru 09/29/23 21:02 Intake Total 115 Balance 115 Weight 72 kg Intake: IV 115 Other: Urine Color Yellow Urine Appearance Cloudy Urinary Catheter Urinary Catheter Date of 09/29/23 Insertion [Uretheral (Michael)] Time of insertion [Uretheral ( 18:10 Michael)] Falls Risk Assessment History of Falls Previous History 09/29/23 18:55 Contributing Factors Confusion 09/29/23 18:55 Ambulatory Aids Independent 09/29/23 18:55 Tubes/Lines None 09/29/23 18:55 Gait Evaluation No gait disturbance 09/29/23 18:55 Cognition No cognitive impairment 09/29/23 18:55 Fall Total Score 18 09/29/23 18:55 Level of Risk Standard/Low Risk 09/29/23 18:55 Problems (Last Reviewed 09/29/23 @ 20:54 by Valentín Garay) PAF (paroxysmal atrial fibrillation) (Chronic) Intertrochanteric fracture of left hip (Acute 09/29/23) Recurrent urinary tract infection (Acute) v v v v v v v v v Sending and/or Receiving Nurses: Please use comment section below to note any information pertinent to the patient hand-off not included above. Information / Comments: Pt fell at home, no LOC, pain in L Hip. Xray shows broken L intertrochanter. Hx of Afib, chronic UTIs, and dementia. Surgery in the AM. Tylenol, fentanyl, TXA, and EKG done in ED. 18 G in LAC, Michael to be placed on Med/Surg. VSS. Report received from: Chadd De Paz PM
[2023-09-29 21:46] LABS: Troponin I < 50 ng/L (< or =60)
[2023-09-29 21:52] LABS: TSH (W/Ref FT4) 0.41 uIU/mL (0.36-3.74)
[2023-09-29] MEDS: Normal Saline 1,000 ML 75 ML IV (22:35)
[2023-09-29] MEDS: dilTIAZem 30 MG TAB PO (22:36)
[2023-09-29] MEDS: Acetaminophen 325 MG TAB PO (22:36)
[2023-09-29] MEDS: POTASSIUM CHLORIDE 20 MEQ/100 ML BAG 50 MEQ IVINF (22:36)
[2023-09-29] MEDS: Pantoprazole 40 MG VIAL IVP (22:36)
[2023-09-30] VITALS (64 sets, daily range): BP systolic 90–210; BP diastolic 41–116; PULSE 81–129; RESP 16–30; TEMP 36.4–37.3; O2SAT 88–99; BMI 27.5
[2023-09-30] MEDS: MAGNESIUM SULFATE 2 GM/50 ML BAG IVINF (01:35)
[2023-09-30] MEDS: POTASSIUM CHLORIDE 20 MEQ/100 ML BAG 50 MEQ IVINF (03:25)
[2023-09-30] MEDS: Levothyroxine 200 MCG TAB PO (05:15)
[2023-09-30] MEDS: dilTIAZem 30 MG TAB PO ×2 (05:18→14:41)
[2023-09-30 07:21] LABS: HCT 33.8 % (36.0-46.0); HGB 10.9 g/dL (11.2-15.7); MCH 29.9 pg (27.0-33.0); MCHC 32.2 % (32.0-36.0); MCV 93 fL (80-95); Platelet Count 323 10^3/uL (130-400); RBC 3.64 10^6/uL (3.93-5.22); RDW 17.2 % (11.7-14.6); RDW-SD 57.5 fL
[2023-09-30] MEDS: fentaNYL 100 MCG/2 ML VIAL 50 MCG IVP ×3 (07:26→11:15)
[2023-09-30] MEDS: Normal Saline Flush 10 ML SYR IVP ×2 (07:27→21:19)
[2023-09-30 07:49] LABS: ALT 16 U/L (14-59); AST 18 U/L (15-37); Albumin 3.1 g/dL (3.4-5.0); Alkaline Phosphatase 87 U/L (46-116); Anion Gap 9.9 mmol/L (3-11); BUN 13 mg/dL (7-18); Bilirubin, Total 0.77 mg/dL (0.2-1.0); CO2 27.1 mmol/L (21.0-32.0); CREATININE 0.8 mg/dL (0.55-1.02); Calcium 8.8 mg/dL (8.5-10.1); Chloride 105 mmol/L (98-107); Estimated GFR 72.61 (mL/min/1.73m2); Glucose 121 mg/dL (74-106); Potassium 3.8 mmol/L (3.5-5.1); Sodium 142 mmol/L (136-145); Total Protein 7.2 g/dL (6.4-8.2)
--- NOTE | 2023-09-30 08:57 | W.ANESPRE ---
General Info Date of Service Date Performed: 09/30/23 Height: 5 ft 5 in Weight: 75.07 kg Body Mass Index (BMI): 27.5 Surgical Procedure: Operation Date: 09/30/23 13:15 Proposed Procedure Side Surgeon p Hip TFNA Left Jalen Simmons MD Meds Allergies and Home Medications Allergies Allergy/AdvReac Type Severity Reaction Status Date / Time chocolate flavor Allergy red/itchy Verified 09/29/23 17:15 eyes lisinopril Allergy cough Verified 09/29/23 17:15 Home Medication ?Medication ?Instructions ?Recorded acetaminophen 650 mg 1,300 mg PO Q12H 11/17/19 tablet,extended release (Tylenol 8 Hour) ascorbate calcium (vitamin C) 500 600 mg PO DAILY 11/17/19 mg tablet cholecalciferol (vitamin D3) 10 10 mcg PO DAILY 11/17/19 mcg (400 unit) capsule cranberry 400 mg capsule 400 mg PO DAILY 11/17/19 ibuprofen 200 mg tablet 200 mg PO Q6H PRN 11/17/19 levothyroxine 200 mcg tablet 200 mcg PO DAILY 11/17/19 (Synthroid) selenium sulfide 2.25 % shampoo 1 applic topical .weekly 11/17/19 triamcinolone acetonide 0.1 % 1 applic topical BID 11/17/19 topical cream Al hyd-Mg tr-alg ac-sod bicarb 80 tab PO 05/15/22 mg-14.2 mg chewable tablet (Gaviscon) famotidine 20 mg tablet 20 mg PO BID 05/15/22 apixaban 5 mg tablet (Eliquis) 5 mg PO BID 11/20/22 cephalexin 250 mg tablet 125 mg (1/2 x 250 mg) PO QHS #45 11/20/22 tabs diltiazem HCl 120 mg capsule,24 120 mg PO DAILY 11/20/22 hr,extended release mecobalamin (vitamin B12) 1,000 1,000 mcg PO DAILY 05/22/23 mcg chewable tablet (B12 Active) ferrous sulfate 325 mg (65 mg 325 mg PO DAILY 06/14/23 iron) tablet (Feosol) Current Visit Medications: Current Medications Generic Name Dose Route Start Last Admin Trade Name Freq PRN Reason Stop Dose Admin Acetaminophen 0 mg 09/29/23 21:05 09/29/23 22:36 Acetaminophen 325 Mg Tab PO 650 mg Q4H PRN PRN Administration Al Hydrox/Mg Hydrox/Simethicone 15 ml 09/29/23 21:05 Mylanta Double Strength Suspension 30 Ml Cup PO Q2H PRN PRN Diltiazem HCl 30 mg 09/29/23 22:00 09/30/23 05:18 Diltiazem 30 Mg Tab PO 30 mg Q6H MARILEE Administration Docusate Sodium 100 mg 09/29/23 21:05 Docusate Sodium 100 Mg Cap PO TID PRN PRN Fentanyl 50 mcg 09/29/23 22:44 09/30/23 07:26 Fentanyl 100 Mcg/2 Ml Vial IVP 50 mcg Q1H PRN PRN Administration Sodium Chloride 1,000 mls @ 75 mls/hr 09/29/23 21:15 09/29/23 22:35 Saline 1000ml Bag IV 75 mls/hr INFUSION MARILEE Administration Ceftriaxone Sodium/Dextrose 1 gm in 50 mls @ 100 mls/hr 09/30/23 18:00 Rocephin IVPB Q24H [facility] IV Miscellaneous Supplies 1 each 09/29/23 17:30 Iv Access-Emergency Dept IV DIRECTED [facility] IV Miscellaneous Supplies 1 each 09/29/23 21:15 Iv Access IV DIRECTED [facility] Levothyroxine Sodium 200 mcg 09/30/23 06:00 09/30/23 05:15 Levothyroxine 200 Mcg Tab PO 200 mcg 0600 MARILEE Administration Magnesium Hydroxide 30 ml 09/29/23 21:05 Milk Of Magnesia 30 Ml Cup PO DAILY PRN PRN Pantoprazole Sodium 40 mg 09/29/23 22:00 09/29/23 22:36 Pantoprazole 40 Mg Vial IVP 40 mg Q24H MARILEE Administration Polyethylene Glycol 17 gm 09/29/23 21:05 Polyethylene Glycol 3350 17 Gm Packet PO DAILY PRN PRN Constipation Sodium Chloride 0 ml 09/29/23 17:30 Normal Saline Flush 10 Ml Syr IVP PRN PRN Sodium Chloride 0 ml 09/29/23 20:00 09/30/23 07:27 Normal Saline Flush 10 Ml Syr IVP 10 ml BID MARILEE Administration Sodium Chloride 0 ml 09/29/23 17:30 Normal Saline 10 Ml Vial IJ DIRECTED PRN Sodium Chloride 0 ml 09/29/23 21:05 Normal Saline Flush 10 Ml Syr IVP PRN PRN Sodium Chloride 0 ml 09/30/23 08:30 09/30/23 08:20 Normal Saline Flush 10 Ml Syr IVP Not Given BID MARILEE Sodium Chloride 0 ml 09/29/23 21:05 Normal Saline 10 Ml Vial IJ DIRECTED PRN PFSH Active Problems Active Problems: Problem Status Onset Code Hypokalemia Acute E87.6 PAF (paroxysmal atrial fibrillation) Chronic I48.0 Intertrochanteric fracture of left hip Acute 09/29/23 S72.142A Cerumen impaction Acute H61.20 Sensorineural hearing loss Acute H90.5 Urinary frequency Acute R35.0 Recurrent urinary tract infection Acute N39.0 Medical History Medical History Blood glucose abnormal Abdominal tenderness Syncope Degeneration of lumbar intervertebral disc Cervical spondylosis Osteoarthritis Hyperkeratosis Psoriasis Dysuria Post-mastectomy lymphedema syndrome Hypertensive disorder Mixed hyperlipidemia Hypothyroidism Goiter Malignant lymphoma Carcinoma of thyroid Basal cell carcinoma Surgical History Surgical History H/O basal cell carcinoma excision History of lymph node dissection of axilla H/O thyroidectomy H/O partial mastectomy History of left knee replacement Tobacco Smoking/Tobacco Use Status: Never Alcohol Alcohol Intake: never Substance Use Substance use: Never Substance use type: does not use Vital Signs and Lab Results Vital Signs Most Recent Vital Signs in EMR: Most Recent Vital Signs Temp Pulse Resp BP Pulse Ox 37.1 C 104 H 18 152/69 H 94 09/30/23 08:39 09/30/23 08:39 09/30/23 08:39 09/30/23 08:39 09/30/23 08:39 Lab Results 09/30/23 06:12 09/30/23 06:12 Blood Type / Crossmatch: No Data to Display Complete Blood Count: White Blood Count 9.90 10^3/uL (4.4-10.8) 09/30/23 06:12 Red Blood Count 3.64 10^6/uL (3.93-5.22) L 09/30/23 06:12 Hemoglobin 10.9 g/dL (11.2-15.7) L 09/30/23 06:12 Hematocrit 33.8 % (36.0-46.0) L 09/30/23 06:12 Platelet Count 323 10^3/uL (130-400) 09/30/23 06:12 Complete Metabolic Panel: Sodium 142 mmol/L (136-145) 09/30/23 06:12 Potassium 3.8 mmol/L (3.5-5.1) 09/30/23 06:12 Chloride 105 mmol/L (98-107) 09/30/23 06:12 Carbon Dioxide 27.1 mmol/L (21.0-32.0) 09/30/23 06:12 BUN 13 mg/dL (7-18) 09/30/23 06:12 Creatinine 0.8 mg/dL (0.55-1.02) 09/30/23 06:12 Est GFR (CKD-EPI 2020) 72.61 (mL/min/1.73m2) 09/30/23 06:12 Magnesium 2.0 mg/dL (1.8-2.4) 09/30/23 06:12 Calcium 8.8 mg/dL (8.5-10.1) 09/30/23 06:12 Albumin 3.1 g/dL (3.4-5.0) L 09/30/23 06:12 Glucose 121 mg/dL (74-106) H 09/30/23 06:12 Liver Function Panel: Alanine Aminotransferase (ALT/SGPT) 16 U/L (14-59) 09/30/23 06:12 Aspartate Amino Transf (AST/SGOT) 18 U/L (15-37) 09/30/23 06:12 Coagulation Panel: INR International Normalized Ratio 1.0 (0.9-1.1) 09/29/23 17:54 Prothrombin Time 10.4 sec (9.1-11.1) 09/29/23 17:54 Cardiac Panel: Troponin I < 50 ng/L (< or =60) 09/29/23 Arterial Blood Gas: No Data to Display Venous Blood Gas: No Data to Display Pancreas Panel: No Data to Display Thyroid Panel: Thyroid Stimulating Hormone (TSH) 0.41 uIU/mL (0.36-3.74) 09/29/23 21:20 Infectious Disease: No Data to Display Blood Cultures: No Data to Display Toxicology Panel: No Data to Display Imaging and Studies Imaging and Studies Study information below may be from another EMR and interpreted by another provider. Please see original notes in EMR for more complete details. EKG Summary: 10/04: afib. Anesthesia Assessment and Plan Anesthesia History Personal History: No History of Anesthesia Complications Family History: No Family History of Anesthesia Complications Exercise Tolerance Exercise Tolerance: Metabolic Equivalents>4 Cardiac & Pulmonary Exam Cardiac Exam: Normal S1/S2 Heart Sounds Pulmonary Exam: Clear Bilateral Breath Sounds Implantable Cardiac Device Does patient have a Pacemaker or an ICD?: No Airway Exam Known Difficult Airway: No Mallampati Class: 4 Mouth Opening: Narrow (< 3cm) Thyromental Distance: Less than 3 cm Neck Range of Motion: Limited ROM Neck Circumference: Normal Teeth Condition: Generalized Poor Dentition ASA Classification ASA Score: ASA 3 Emergency Case?: No NPO Status NPO Status: NPO Clears >2 hours, Solids >8 hours Anesthesia Plan Resuscitation Status: Full Code Anesthesia Technique: General Anesthesia Airway Planned: LMA Monitors Used: Standard Monitors Preoperative Comments:: 83 yo female admitted 09/28 with hip fracture. currently inpt, intermittently confused. DIL states she is mostly intact, but has been confused during her stay here. Sig PMHx: afib (dilt., eliquis - last dose unclear), hypothyroid (on replacement), never smoker. [place] [facility] [place] glide [place] 1.
--- NOTE | 2023-09-30 09:38 | INITIAL_ITS ---
Date of service: 09/30/23 Time of Service: 09:38 Care Management Initial Assmt Initial Assessment Reason for Hospitalization: intertrochanteric fracture of Left hip, s/p fall. UTI Functional Status/Living Situation Patient Presentation: Cookie was lying in bed when CM met with her. Her son, Jon, URIEL Adan, and granddaughter, Kiya, were all present. Cookie was able to tell CM that she is having a lot of pain. Cookie is hard of hearing at baseline, and today presents with some confusion that is not baseline, so conversation mainly occurred with Jon and Antionette. Jon did state that his Mom has met with [facility] and due to her finances, she does not qualify for Choices for Care. Town of Residence: [place] Resides with: Child (Daughter Rufina lives with Cookie. Rufina has a full time staff interpreter job and is gone most of the day.) Significant Other/Family: Local (Son Jon and his Antionette live about 25 minutes away) Caregiver/Guardian: Daughter Rufina lives with her Mom, but does work full time staff interpreter. Natural Supports: Daughter, Rufina, lives with her Mom, but does work full time staff interpreter. Son, Jon, and his Antionette are about 25 minutes away and are involved in care. Antionette has a nursing background and helps with the medical stuff. Employment Status: Retired (Cookie had quite a career. She worked in [employer] and was also employed by the [employer]. She was in a field that was dominated by men at the time.) Instrumental Activities of Daily Living (ADLs): Independent (has been independent in ADLs) Activities/Hobbies/SocialSupport: Family is a good support. Cookie like to putter around the house. Medications Medication Management: No Issues/Barriers identified Physical Functioning/Mobility Assistive Device: Has both a walker and a cane at home. Rarely uses. Advance Directives Advance Directives: Do you have an Advance Directive: N 12/12/22 15:35 AD On File at [facility]: N 12/12/22 15:35 Date Asked 09/29/23 09/29/23 17:42 AD Date Reviewed COLST On File at [facility] COLST Date Scanned Comment: Jon stated that he and his sister have started the paperwork for the AD, but it is not complete. They have completed guardianship paperwork for finances only. Code Status Resuscitation Status Full Code Insurance Coverage/Financial Issues Insurance: [employer] Benefit Plan/ Medicare A&B Financial Issues: Per son , Cookie Webb has met with [facility] and due to her finances, she does not qualify for Choices for Care. Care Team Visit Care Team Role Provider Type Christine Brunner Primary Care Provider NURSE PRACTITIONER Jalen Simmons MD Other Providers [facility] STAFF PHYSICIAN Helen Luo MD Emergency Provider [facility] STAFF PHYSICIAN Valentín Garay Admit Provider NON-[facility] STAFF PHYSICIAN Attending Provider Discharge Potential Discharge Needs: PT Evaluation and Surgical F/U Appt (Will need ortho f/u) Anticipated Barriers to Discharge: Medical Status Patient/Family Education Needs: Review discharge instructions, discuss Ask Me Three Plan: Anticipate that Cookie will be discharged with HH RN and PT/OT vs short-term SNF placement. Transportation will be dependent on patient disposition. Family stated they are open to these options. CM will continue to follow. PFSH All Active Problems Hypokalemia (Acute) PAF (paroxysmal atrial fibrillation) (Chronic) Intertrochanteric fracture of left hip (Acute 09/29/23) Cerumen impaction (Acute) Sensorineural hearing loss (Acute) Urinary frequency (Acute) Recurrent urinary tract infection (Acute) Medical History Blood glucose abnormal Abdominal tenderness Syncope Degeneration of lumbar intervertebral disc Cervical spondylosis Osteoarthritis Hyperkeratosis Psoriasis Dysuria Post-mastectomy lymphedema syndrome Hypertensive disorder Mixed hyperlipidemia Hypothyroidism Goiter Malignant lymphoma Carcinoma of thyroid Basal cell carcinoma Surgical History H/O basal cell carcinoma excision History of lymph node dissection of axilla H/O thyroidectomy H/O partial mastectomy History of left knee replacement Social History Smoking/Tobacco Use Status: Never Smoking risk assessment performed?: Yes Alcohol Intake: never Drug use: Never Substance use type: does not use Housing: house [facility](Care Management) Screening Will the Patient Participate in the Screening?: Unable to obtain Reason for being unable to obtain: Screening done with sonJon Do you worry about having a steady place to live?: no In the past 12 months, have you had to go without electric, gas, oil or water in your home?: no Have you or anyone in your house had to go without enough food to eat?: no Has lack of transportation kept you from medical appointments or from doing things needed for daily living?: no Social Determinants of Health Comments(SDOH Details): unable to ask Anticipated HH Services Anticipated HH Services at Discharge [facility] Needed, OT, PT and RN.
[2023-09-30] MEDS: ceFAZolin 1,000 MG VIAL 1000 MG (11:45)
[2023-09-30] MEDS: Tranexamic Acid 1,000 MG/10 ML VIAL 1000 MG (11:45)
--- NOTE | 2023-09-30 12:21 | NUR.NOTE ---
Nursing Note: To OR at 1130 on hospital bed accompanied by 2 PACU nurses. Report to Anaya PRECIADO. IV fluids clamped and marsh emptied prior to leaving floor. Patient medicated for pain, pt screams out if leg is moved or touched at all.
[2023-09-30] MEDS: Bupivacaine 0.25% Pres-Free W/EPI 30 ML VIAL ×2 (12:36→12:37)
--- NOTE | 2023-09-30 12:43 | DI.RAD_ITS ---
Exam(s) XR HIP LT IN OR EXAM: XR HIP LT IN OR CLINICAL HISTORY: Intertrochanteric fracture of left hip: TECHNIQUE: 2D and realtime digital imaging was performed. CONTRAST MATERIAL: Refer to procedure report. COMPARISON: CR,XR XR HIP LT AP LAT ONLY from 09/29/2023 FINDINGS: Fluoroscopy was provided for Dr. Troy bang during the performance of a internal fixation of the left femoral fracture. Please refer to the procedure report for complete details. Ka,r=4.7 mGy IMPRESSION: RADIATION DOSE DELIVERED: 0.0 221.0 0
--- NOTE | 2023-09-30 12:51 | W.PM.OP ---
Date of service: 09/30/23 Time of Service: 12:00 Operative Note Operative Note DATE OF PROCEDURE: 09/30/23 PRE-OP DIAGNOSIS: Left hip intertrochanteric fracture POST-OP DIAGNOSIS: same PROCEDURE: Left hip intramedullary nail, CPT #75119 SURGEON: Jalen Simmons ANNEALING OPERATOR: None None ANESTHESIA TYPE: Local By Surgeon and General LMA/ETT Refer to Anesthesia Record ESTIMATED BLOOD LOSS: 30 COMPLICATIONS: None Patient was transported to: PACU Patient's condition: stable Implants: Synthes TFNA [id number] 130 deg, 95 mm TFNA helical blade, 34 mm 5.0mm distal locking screw Indications: Please see medical record for details Procedure Description: In the operating room, general anesthesia was induced. The patient was transferred and positioned supine on the fracture table. All bony prominences were well padded. Pre-operative antibiotics were administered. C-arm fluoroscopy was used to confirm appropriate provisional fracture reduction with traction and internal rotation. The correct patient, procedure, and side of the procedure were all verified prior to incision. The hip was prepped and draped in the usual sterile fashion. Local anesthetic with epinephrine was infiltrated about the planned start point as well as later about the lateral entry site for cephalomedullary and distal locking screws. C-arm fluoroscopy was used to locate the appropriate start point for the guide wire on the tip of the greater trochanter. This guide wire was advanced centrally down the proximal femur to the level of the lessor trochanter. Lateral images confirmed appropriate start point on the trochanter. Next the incision was extended about the guide wire to accommodate the nailing jig and this incision was carried down through the fascia and spread apart for ease of future instrument passage. The entry reamer was inserted along with the soft tissue protection tube and this reamer was used to open the proximal femur. The guidewire and reamer slid somewhat laterally into the fracture site. The entry reamer, soft tissue protector, and guidewire were removed from the proximal femur. The appropriately selected nail was assembled on the back table to the jig and tested to ensure proper passage of the cephalomedullary drill. This implant was manually inserted into the proximal femur and advanced to the appropriate level for cephalomedullary fixation. Another incision was made laterally to accommodate the cephalomedullary aiming tube and trochar, which were advanced down to bone. The guide wire was then advanced into the femoral neck and adjusted on AP and lateral fluoroscopy until it was placed near subchondral bone in the center-center position in the femoral head. The depth gauge was used to measure the helical blade length accommodating for depth of guidewire insertion. Next, the drills were used to open the lateral cortex, drill over the wire, and the helical blade was advanced to the appropriate depth by gentle mallet blows. The set screw was engaged and backed off 180 degrees to allow for rotationally-controlled sliding and compression. Traction was released, and the fracture was compressed appropriately via the buttress and compression nut on the jig. The cephalomedullary aiming guide was removed. The distal locking screw guide was inserted through another small incision down the bone. The drill was used to drill for this static locking screw and measure the length. The appropriate length screw was then inserted bicortically. The jig was removed from the nail. Final AP and lateral fluoroscopic images were taken and confirmed appropriate fracture reduction and implant placement. All wounds were copiously irrigated. Deep & subcutaneous tissue was closed using 2-0 monocryl in a buried interrupted fashion. Skin glue was applied to all incisions. Incisions were covered with Mepilex Band-Aids. The patient awoke from anesthesia without complication and was transferred to the recovery room in stable condition.
--- NOTE | 2023-09-30 12:54 | PGE_ITS ---
Date of Service Date of service: 09/30/23 Time of Service: 12:54 Assessment and Plan Assessment and plan (1) Intertrochanteric fracture of left hip: Status: Acute Assessment and plan: 83-year-old female postop day #0 status post Left hip IMN Surgery went well. Waking up comfortably in PACU. Left hip dressings clean dry intact. Lower extremity rotation and appearance appropriate. Likely increased bruising postop due to Eliquis. Complete 24 hours postoperative antibiotics Discontinue Michael catheter postop day #1 Pain control-Multimodal Physical therapy: Weightbearing as tolerated with assist device May resume Eliquis as chemical DVT prophylaxis tomorrow morning assuming hemodynamically stable Continue mechanical DVT prophylaxis with SCDs and/or SHRUTHI hose Discharge when medically appropriate Follow-up with Dr. Simmons outpatient [facility] in about 2 weeks Appreciate medical management Qualifiers: Encounter type: initial encounter Fracture type: closed Fracture alignment: nondisplaced Qualified Code(s): S72.145A - Nondisplaced intertrochanteric fracture of left femur, initial encounter for closed fracture Objective Last Vital Signs Temp 98.8 F 09/30/23 08:39 Pulse 104 H 09/30/23 08:39 Resp 18 09/30/23 08:39 BP 152/69 H 09/30/23 08:39 Pulse Ox 94 09/30/23 08:39 Laboratory Results - last 24 hr 09/29/23 09/29/23 09/29/23 17:54 18:10 21:20 WBC 11.17 H RBC 3.91 L Hgb 11.9 Hct 37.4 MCV 96 H MCH 30.4 MCHC 31.8 L RDW 17.2 H Plt Count 344 MPV 10.5 Immature Gran % 1.1 Neutrophils % 73.5 Lymphocytes % 13.8 Monocytes % 10.6 Eosinophils % 0.4 Basophils % 0.6 Nucleated RBC % 0.2 Absolute Neutrophils 8.21 H Absolute Lymphocytes 1.54 Absolute Monocytes 1.18 H Absolute Eosinophils 0.04 Absolute Basophils 0.07 PT 10.4 INR 1.0 Sodium 143 Potassium 3.3 L Chloride 105 Carbon Dioxide 28.2 Anion Gap 9.8 BUN 20 H Creatinine 1.1 H Est GFR (CKD-EPI 2020) 49.55 Glucose 125 H Calcium 9.3 Magnesium 1.8 Total Bilirubin 0.37 AST 19 ALT 15 Alkaline Phosphatase 100 Troponin I < 50 < 50 Total Protein 7.7 Albumin 3.3 L TSH 0.41 Urine Color Yellow Urine Clarity Cloudy Urine pH 6.5 Ur Specific [place] 1.020 Urine Protein 100 H Urine Ketones Negative Urine Blood Moderate H Urine Nitrite Negative Urine Bilirubin Negative Urine Urobilinogen 0.2 Ur Leukocyte Esterase Moderate H Urine RBC 20-50 H Urine WBC >50 H Ur Epithelial Cells Few Urine Crystals Negative Urine Bacteria Rare Urine Mucus Negative Ur Culture Indicated? Yes Urine Glucose Negative 09/30/23 06:12 WBC 9.90 RBC 3.64 L Hgb 10.9 L Hct 33.8 L MCV 93 MCH 29.9 MCHC 32.2 RDW 17.2 H Plt Count 323 MPV 11.0 Immature Gran % Neutrophils % Lymphocytes % Monocytes % Eosinophils % Basophils % Nucleated RBC % Absolute Neutrophils Absolute Lymphocytes Absolute Monocytes Absolute Eosinophils Absolute Basophils PT INR Sodium 142 Potassium 3.8 Chloride 105 Carbon Dioxide 27.1 Anion Gap 9.9 BUN 13 Creatinine 0.8 Est GFR (CKD-EPI 2020) 72.61 Glucose 121 H Calcium 8.8 Magnesium 2.0 Total Bilirubin 0.77 AST 18 ALT 16 Alkaline Phosphatase 87 Troponin I Total Protein 7.2 Albumin 3.1 L TSH Urine Color Urine Clarity Urine pH Ur Specific [place] Urine Protein Urine Ketones Urine Blood Urine Nitrite Urine Bilirubin Urine Urobilinogen Ur Leukocyte Esterase Urine RBC Urine WBC Ur Epithelial Cells Urine Crystals Urine Bacteria Urine Mucus Ur Culture Indicated? Urine Glucose Time Spent with Patient Time Spent with Patient: <25 minutes Time was spent: preparing to see the patient(eg.review tests), referring, communicating with other health respiratory care specialist and indepentently interpreting results
--- NOTE | 2023-09-30 13:10 | W.ANESPOSTOP ---
Postoperative Evaluation Date, Time and Location Date Performed: 09/30/23 Time Performed: 13:10 Patient Location: PACU Vital Signs Most Recent Imported Vital Signs: Most Recent Vital Signs Temp Pulse Resp BP Pulse Ox 36.9 C 110 H 26 H 126/66 93 09/30/23 12:50 09/30/23 12:50 09/30/23 12:50 09/30/23 12:50 09/30/23 12:50 Pain Score Most Recent Pain Score: Most Recent Pain Score Pain Level 10 09/30/23 09:48 Assessment Mental Status: Arousable with meaningful communication Airway and Respiratory Function: Patent airway with normal (patient baseline) respiratory exam Cardiovascular Function: Hemodynamically Stable Hydration Status: Adequately Hydrated Nausea & Vomiting: No Nausea or Vomiting Pain: Pain is tolerable per patient Peripheral Nerve Block: Patient did not receive a nerve block
[2023-09-30] MEDS: ACETAMINOPHEN 1,000 MG/100 ML BTL 400 MG IVPB ×2 (13:20→20:00)
--- NOTE | 2023-09-30 13:56 | NUR.NOTE ---
Nursing Note:Returned from OR, family at bedside. She continues to pull at lines and linens. Hospitalist to bedside
[2023-09-30] MEDS: HYDROmorphone 2 MG/ML SYR 0.5 MG IV (14:24)
[2023-09-30] MEDS: Ketorolac 15 MG/ML VIAL IVP (14:25)
[2023-09-30] MEDS: dilTIAZem CD 120 MG CAPCR PO (14:41)
--- NOTE | 2023-09-30 15:22 | PGE_ITS ---
Date of Service Date of service: 09/30/23 Time of Service: 15:23 Assessment and Plan Assessment and plan (1) Intertrochanteric fracture of left hip: Status: Acute Assessment and plan: Status post surgical repair today. No IntraOp complications reported. Will continue routine postoperative care. Pain management, bowel management, pulmonary toileting Will resume apixaban tomorrow morning per orthopedic surgeon. Continue SCDs and SHRUTHI stockings PT following for discharge planning Qualifiers: Encounter type: initial encounter Fracture type: closed Fracture alignment: nondisplaced Qualified Code(s): S72.145A - Nondisplaced intertrochanteric fracture of left femur, initial encounter for closed fracture (2) PAF (paroxysmal atrial fibrillation): Status: Chronic Assessment and plan: Rate controlled to uncontrolled up into the 120s likely secondary to postoperative pain and did not receive her long-acting diltiazem this morning. Will resume long-acting diltiazem and can have Cardizem 30 mg IR 4 times daily as needed heart rate sustained above 120 She is fully anticoagulated on apixaban which will resume tomorrow morning (3) Recurrent urinary tract infection: Status: Acute Assessment and plan: On ceftriaxone while urine cultures pending (4) Hypokalemia: Status: Acute Assessment and plan: 3.3 on admission was repleted and now 3.8 continue to monitor Magnesium level 2.0 (5) Discharge planning issues: Status: Acute Assessment and plan: Case management following for discharge planning case discussed ;with DR Blackwell Subjective Subjective Patient reports: still having pain and afebrile Interval history since last seen: patient returned from PACU with significant left hip pain, is awake alert and with no other c/o. her physical exam unremarkable. denies nausea, abd pain, SOB or c/p, procedure and recovery uneventful. HR noted to be 120's UCAF, Exam Narrative Exam Narrative: Elderly female of stated age in no acute distress laying quietly on her bed. Head is atraumatic eyes normal appearance nonicteric noninjected she is extremely hard of hearing but answers appropriately. Oral mucosa slightly dry neck with full range of motion no JVD cardiovascular irregular rate and rhythm in the 120s uncontrolled atrial fibrillation on the monitor. Respirations are even and unlabored breath sounds diminished in the bases skin is pale warm and dry she is well-perfused. She has a strong pedal pulse on the left with intact sensation. Moves her toes and foot freely. Surgical dressings are clean dry and intact no surrounding erythema or drainage noted no extensive ecchymosis noted. Objective Last Vital Signs Temp 37.2 C 09/30/23 13:53 Pulse 101 H 09/30/23 13:53 Resp 17 09/30/23 13:53 BP 132/80 09/30/23 13:53 Pulse Ox 92 09/30/23 13:53 Laboratory Results - last 24 hr 09/29/23 09/29/23 09/29/23 17:54 18:10 21:20 WBC 11.17 H RBC 3.91 L Hgb 11.9 Hct 37.4 MCV 96 H MCH 30.4 MCHC 31.8 L RDW 17.2 H Plt Count 344 MPV 10.5 Immature Gran % 1.1 Neutrophils % 73.5 Lymphocytes % 13.8 Monocytes % 10.6 Eosinophils % 0.4 Basophils % 0.6 Nucleated RBC % 0.2 Absolute Neutrophils 8.21 H Absolute Lymphocytes 1.54 Absolute Monocytes 1.18 H Absolute Eosinophils 0.04 Absolute Basophils 0.07 PT 10.4 INR 1.0 Sodium 143 Potassium 3.3 L Chloride 105 Carbon Dioxide 28.2 Anion Gap 9.8 BUN 20 H Creatinine 1.1 H Est GFR (CKD-EPI 2020) 49.55 Glucose 125 H Calcium 9.3 Magnesium 1.8 Total Bilirubin 0.37 AST 19 ALT 15 Alkaline Phosphatase 100 Troponin I < 50 < 50 Total Protein 7.7 Albumin 3.3 L TSH 0.41 Urine Color Yellow Urine Clarity Cloudy Urine pH 6.5 Ur Specific Brimson 1.020 Urine Protein 100 H Urine Ketones Negative Urine Blood Moderate H Urine Nitrite Negative Urine Bilirubin Negative Urine Urobilinogen 0.2 Ur Leukocyte Esterase Moderate H Urine RBC 20-50 H Urine WBC >50 H Ur Epithelial Cells Few Urine Crystals Negative Urine Bacteria Rare Urine Mucus Negative Ur Culture Indicated? Yes Urine Glucose Negative 09/30/23 06:12 WBC 9.90 RBC 3.64 L Hgb 10.9 L Hct 33.8 L MCV 93 MCH 29.9 MCHC 32.2 RDW 17.2 H Plt Count 323 MPV 11.0 Immature Gran % Neutrophils % Lymphocytes % Monocytes % Eosinophils % Basophils % Nucleated RBC % Absolute Neutrophils Absolute Lymphocytes Absolute Monocytes Absolute Eosinophils Absolute Basophils PT INR Sodium 142 Potassium 3.8 Chloride 105 Carbon Dioxide 27.1 Anion Gap 9.9 BUN 13 Creatinine 0.8 Est GFR (CKD-EPI 2020) 72.61 Glucose 121 H Calcium 8.8 Magnesium 2.0 Total Bilirubin 0.77 AST 18 ALT 16 Alkaline Phosphatase 87 Troponin I Total Protein 7.2 Albumin 3.1 L TSH Urine Color Urine Clarity Urine pH Ur Specific Brimson Urine Protein Urine Ketones Urine Blood Urine Nitrite Urine Bilirubin Urine Urobilinogen Ur Leukocyte Esterase Urine RBC Urine WBC Ur Epithelial Cells Urine Crystals Urine Bacteria Urine Mucus Ur Culture Indicated? Urine Glucose Time Spent with Patient Time Spent with Patient: 35-49 minutes Time was spent: preparing to see the patient(eg.review tests), obtaining and/or [facility], ordering medications,tests, procedures, indepentently interpreting results and counseling the patient
--- NOTE | 2023-09-30 15:24 | IN_ITS ---
PT Notes Visit Reasons: Intertrochanteric Fracture Left Hip Inpatient Physical Therapy Evaluation Date: 09/30/23 Referring Doctor: Dr. Simmons PT Orders: PT CONSULT: sp IMN left hip, WBAT with AD Precautions: WBAT with device Patient Profile/Admitting Diagnosis: Cookie is an 83-year-old with mechanical fall at home sustaining comminuted left i 61% impairment . Underwent IMN performed by Dr. Simmons, post op day 0. Social History/Home Situation: Patient lives in a private home with her daughter, who works during the day. Normally independent, using a 4WW intermittently. Has steps to enter with railing, which she normally manages one leg at a time due to right knee pain. Family present at time of evaluation and exploring the possibility of a ramp. Equipment Owned/DME: 4WW Subjective: Cookie's family reports that she's been trying to get up on her own. She's been confused throughout the day. Had pain meds just prior to PT consult. Objective: General Observation: Resting in bed with Michael catheter in place. Mental Status: Alert. Oriented to person, but not place. Requires frequent reminders from family throughout session. Pleasant and cooperative throughout. Able to follow instructions. Pain: unable to quantify ROM: Right Lower Extremity: Grossly WFL. Arthritic right knee, but able to demonstrate full extension during weight bearing. Left Lower Extremity: Functionally demonstrates 80* hip flexion, 20* AB, knee motion 0-90*. Strength: Right Lower Extremity: Hip flexion 3/5 or greater. Quads 3/5 or greater. Functionally able to perform ankle pump and heel slide. Left Lower Extremity: Hip AB 2/5. Ankle DF 3/5 or greater. Quads 3/5. Functionally unable to slide leg independently for bed mobility or perform heel slide. Sensation: intact distally Bed Mobility/Transfers: supine-sit: mod A x 2, max cues sit-stand: min A x 1 bed-chair: min A x 1 with FWW Gait: ambulates 3' with FWW, min A x 1. Balance: Static Sitting: good Dynamic Sitting: fair Static Standing: fair Dynamic Standing: fair Special Tests: Mobility Limitations Standardized Measure [facility] AM-PAC 6 clicks Basic Mobility Inpatient Short Form: Raw Score: 14 CMS Score: 61% impairment Informed Consent/Education: Patient instructed in purpose of PT consult and plan of care. Treatment: Initial Evaluation (79058) Therapeutic Actiivties (29103) Instructed in transfer techniques for bed mobility and sit-stand. Cues for technique and hand placement Instructed in equipment management for early ambulation/transfer to chair Patient remained up to chair post session, alarm in place, family present Assessment: Patient is an 83 year old female referred to physical therapy services with the diagnosis of left hip intertrochanteric femoral fracture s/p IMN, post op day 0. Patient presents with clinical signs and symptoms consistent with post op status, as demonstrated by the following impairment leve l findings: 1. decreased left hip ROM 2. decreased LLE strength 3. decreased activity tolerance 4. post-op pain Impairments are contributing to the following functional limitations: 1. dependent for bed mobility 2. unable to ambulate independently 3. unable to transfer independently 4. unable to manage stairs Patient is assessed as Moderate 11927 complexity based on the following: History: as above. Complicating factor of mental status change, chronic right knee pain. Examination: as above Presentation: evolving Decision Making: moderate complexity Goals: Goals X1 week 1. Supine-Sit : supervision 2. Sit-Supine : supervision 3. Sit-Stand : supervision 4. Stand-Sit : supervision 5. Bed-Chair : supervision with FWW 6. Chair-Bed : supervision with FWW 7. Gait : supervision with FWW x25' 8. Stairs : min A with single rail Plan of Care/Treatment Plan: 1-2x/day, 7 days/week x 1 week. Plan of care has been reviewed with the SATURATOR providing the service under Physical Therapy direction. Initiate Physical Therapy intervention for strengthening, bed mobility, transfers, gait, stairs, balance training, use of assistive device. DISCHARGE RECOMMENDATIONS: Home with HH PT vs SNF for continued rehabilitation, depending on progress toward established goals. Will require FWW prior to discharge, as 4WW will not allow for sufficient support to reduce WBing to LLE TREATMENT CODE/TIME: [id number] (29531, 20475) Renée Guillen, PT, DPT [facility] All Active Problems (Updated 09/30/23 @ 15:30 by Enid David NP) Discharge planning issues (Acute) Hypokalemia (Acute) PAF (paroxysmal atrial fibrillation) (Chronic) Intertrochanteric fracture of left hip (Acute 09/29/23) Cerumen impaction (Acute) Sensorineural hearing loss (Acute) Urinary frequency (Acute) Recurrent urinary tract infection (Acute) Medical History Blood glucose abnormal Abdominal tenderness Syncope Degeneration of lumbar intervertebral disc Cervical spondylosis Osteoarthritis Hyperkeratosis Psoriasis Dysuria Post-mastectomy lymphedema syndrome Hypertensive disorder Mixed hyperlipidemia Hypothyroidism Goiter Malignant lymphoma Carcinoma of thyroid Basal cell carcinoma Surgical History H/O basal cell carcinoma excision History of lymph node dissection of axilla H/O thyroidectomy H/O partial mastectomy History of left knee replacement
--- NOTE | 2023-09-30 16:28 | PHA.REVIEW2 ---
Pharmacy Admission Review Admission Clinical Review Admission Pharmacy Review: Discharge planning issues (Acute) Hypokalemia (Acute) Intertrochanteric fracture of left hip (Acute 09/29/23) Recurrent urinary tract infection (Acute) chocolate flavor Allergy (Verified 09/29/23 17:15) red/itchy eyes lisinopril Allergy (Verified 09/29/23 17:15) cough Resuscitation Status Full Code Height 5 ft 5 in Weight 75.07 kg Pharmacy Admission Review Renal Dosing Renal Dosing: BUN 13 mg/dL (7-18) 09/30/23 06:12 Creatinine 0.8 mg/dL (0.55-1.02) 09/30/23 06:12 Medications needing adjustments: Reviewed (crcl = 42, currently no adjustments needed ) Anticoagulation Anticoagulation: Hgb 10.9 g/dL (11.2-15.7) L 09/30/23 06:12 Hct 33.8 % (36.0-46.0) L 09/30/23 06:12 Plt Count 323 10^3/uL (130-400) 09/30/23 06:12 INR 1.0 (0.9-1.1) 09/29/23 17:54 Creatinine 0.8 mg/dL (0.55-1.02) 09/30/23 06:12 DVT Prophylaxis: Reviewed Medications: Apixaban (resume 09/30) Therapeutic Anticoagulation: Reviewed Medications: Apixaban ((indication: Afib) resume 09/30 AM) Relevant Labs Relevant Labs: Sodium 142 mmol/L (136-145) 09/30/23 06:12 Potassium 3.8 mmol/L (3.5-5.1) 09/30/23 06:12 Chloride 105 mmol/L (98-107) 09/30/23 06:12 Magnesium 2.0 mg/dL (1.8-2.4) 09/30/23 06:12 Electrolytes, C-Reactive P, ESR: Reviewed DM Control DM Control: N/A (no diabetes diagnosis, no a1c to review) Cardiac Review Cardiac Review: Troponin I < 50 ng/L (< or =60) 09/29/23 21:20 BP, HR, EF%: Reviewed List meds needing interventions: home diltiazem ER 120 mg daily resumed today + dilt 30 mg PO q6h prn HR >120 sustained QTc Review QTc: Reviewed (QTc = 480 09/29/23) IV to PO Switch IV Medications: Reviewed Home Meds Home Med List reviewed: Reviewed Current Meds Current Medication Order Review: Reviewed Pharmacy Antibiotic Review Pharmacy Antibiotic Activity: Reviewed, no change Comments: ceftriaxone 1g q24h for UTI + cefazolin 1g q8h x 3 to be given for post-op prophylaxis (ceftriaxone dose to be held 09/29 while on cefazolin, resume 09/30 @1800)
[2023-09-30] MEDS: HYDROmorphone 2 MG/ML SYR 0.5 MG IVP (17:04)
[2023-09-30] MEDS: Docusate Sodium 100 MG CAP PO (17:04)
[2023-09-30] MEDS: ceFAZolin 1 GM/50 ML BAG IVPB (20:01)
[2023-09-30] MEDS: Famotidine 20 MG TAB PO (20:01)
[2023-09-30] MEDS: Pantoprazole 40 MG VIAL IVP (21:31)
[2023-10-01 03:33] VITALS: BP 117/88; PULSE 89; RESP 17; TEMP 36.6; O2SAT 93
[2023-10-01] MEDS: ceFAZolin 1 GM/50 ML BAG IVPB ×2 (03:43→12:29)
[2023-10-01] MEDS: Levothyroxine 200 MCG TAB PO (06:18)
[2023-10-01 07:51] VITALS: BP 115/66; PULSE 117; RESP 18; TEMP 36.4; O2SAT 94
[2023-10-01] MEDS: Ferrous Sulfate 325 MG TAB PO (09:40)
[2023-10-01] MEDS: Famotidine 20 MG TAB PO ×2 (09:40→20:15)
[2023-10-01] MEDS: Apixaban 5 MG TAB PO ×2 (09:40→20:15)
[2023-10-01] MEDS: dilTIAZem CD 120 MG CAPCR PO (09:40)
[2023-10-01] MEDS: ACETAMINOPHEN 1,000 MG/100 ML BTL 400 MG IVPB ×3 (09:45→20:15)
--- NOTE | 2023-10-01 10:40 | CMPROGNOTE_ITS ---
Date of service: 10/01/23 Time of Service: 09:45 Care Management Progress Note Progress Note Text Progress Note Text: Cookie was sitting up in bed when CM met with her this morning. She looked well, was easily engaged, but she is very hard of hearing. Cookie's son Jon was in the room, as well as his , Antionette. Cookie was much more alert today and was able to answer most questions readily. Cookie and her family filled out Advanced Directive today, with CM assistance. Original to patient along with copies for family. AD was scanned into chart today and AD was faxed to [facility] for registration, and to Cookie's PCP at [facility]. Discharge Potential Discharge Needs: PCP F/U Appt and Surgical F/U Appt Anticipated Barriers to Discharge: None Identified Patient/Family Education Needs: Review discharge instructions, discuss Ask Me Three Plan: Anticipate that Cookie will be transferred to SNF for continued strengthening. Family and patient are in agreement to short -term rehab before she returns to her home. Referrals have been sent to [facility], [facility] and [facility]. Transportation will be dependent on disposition and patient ability to transfer safely. CM will continue to follow and support d/c plan. Bed has been offered at [facility]. Cookie and her family agree with this placement. aware. Pt is expected to discharge to [facility] tomorrow. SDOH(Care Management) Screening Will the Patient Participate in the Screening?: Yes Do you worry about having a steady place to live?: no In the past 12 months, have you had to go without electric, gas, oil or water in your home?: no Have you or anyone in your house had to go without enough food to eat?: no Has lack of transportation kept you from medical appointments or from doing things needed for daily living?: no Has anyone in your support network made you feel unsafe for any reason?: no
[2023-10-01 11:36] VITALS: BP 106/64; PULSE 97; RESP 18; TEMP 37.4; O2SAT 93
[2023-10-01] MEDS: Normal Saline Flush 10 ML SYR IVP ×2 (12:27→23:17)
--- NOTE | 2023-10-01 13:56 | PT.INTREAT ---
PT Notes Visit Reasons: Intertrochanteric Fracture Left Hip Inpatient Physical Therapy Treatment Note [facility] Date: 10/01/2023 PRECAUTIONS:WBAT LLE SUBJECTIVE: Patient reports I am ready to get going. Family reports she received pain meds 15 minutes prior to therapist entering room. OBJECTIVE: Patient presents supine in bed family present at bedside. Agreeable to participate motivated to walk . Patient [place] with improved hearing on left side. Patient noted to lip read as well.? PAIN: 3/10 post ambulation VITALS: ?Monitored by nursing Therapeutic Activities ([id number]): Direct one-on-one instruction in dynamic activities to improve functional performance. ? BED MOBILITY/TRANSFERS? Rolling L/R: Mod assist Supine-sit: Mod assist of 1? Sit-supine: Mod assist of 1 ? Sit-stand: CGA of 1 with cues for hand placement (verbal and tactile)? Stand-sit: CGA of 1 with cues for hand placement (verbal and tactile)? Bed-Chair: Contact-guard assist with FWW cues for safe approach? Chair-bed: CGA with FWW cues for safe approach Provided skilled cues and instruction on performance and technique throughout. Gait Training ([id number]): Direct one-on-one instruction and skilled instruction in: [x] employing an assistive device [x] modified weight-bearing status [x] movement sequencing [x] turning and movement with proper form [x] Provided verbal cues for equipment management and technique [x] Provided instruction in gait pattern [x] Patient education regarding pacing and breathing techniques to maximize activity tolerance? GAIT? Assistive Device: FWW ? Weight bearing: Weightbearing as tolerated left lower extremity Assist: CGA? Distance: 60 feet x 2 ? Deviation: Reciprocal pattern with intermittent antalgic gait left lower extremity ? ASSESSMENT: Patient demonstrates significant improvement in functional ability and strength left lower extremity as noted by decreased need for assistance with bed mobility and transfers with rolling walker. Patient tolerated ambulation with minimal reports of pain in left hip during reciprocal pattern of gait. Family present and provided motivational support and encouragement PLAN: Continued skilled PT for strengthening balance functional mobility training TREATMENT CODE/TIME: 25354; [id number]/[id number] DISCHARGE RECOMMENDATION: SNF
[2023-10-01 15:08] VITALS: BP 102/61; PULSE 90; RESP 17; TEMP 37.4; O2SAT 97
--- NOTE | 2023-10-01 17:22 | PT.INTREAT ---
PT Notes Visit Reasons: Intertrochanteric Fracture Left Hip Inpatient Physical Therapy Treatment Note [facility] Date: 10/01/2023 PRECAUTIONS:WBAT LLE SUBJECTIVE: Patient reports need to use the bathroom. OBJECTIVE: Patient presents seated in chair with lower extremities elevated and family present . Agreeable to participate motivated to walk to the bathroom. Patient [place] with improved hearing on left side. Patient noted to lip read as well.? PAIN: 4/10 post ambulation VITALS: ?Monitored by nursing Therapeutic Activities ([id number]): Direct one-on-one instruction in dynamic activities to improve functional performance. ? BED MOBILITY/TRANSFERS? Sit-stand: CGA of 1 with cues for hand placement (verbal and tactile)? Stand-sit: CGA of 1 with cues for hand placement (verbal and tactile)? Bed-Chair: Contact-guard assist with FWW cues for safe approach? Chair-bed: CGA with FWW cues for safe approach Provided skilled cues and instruction on performance and technique throughout. Assistive Device: FWW ? Weight bearing: Weightbearing as tolerated left lower extremity Assist: CGA? Distance: 75 feet x 1?and 30 feet x 1 ? Deviation: Reciprocal pattern ? ASSESSMENT: Patient demonstrated ability to ambulate without antalgic pattern this session. She continues to require cues for safe hand placement for transfers and cue to bring left lower extremity forward prior to sitting on low surfaces. Patient demonstrated ability to unweight bilateral upper extremities and sustained static stand. PLAN: Continued skilled PT for strengthening balance functional mobility training TREATMENT CODE/TIME: [id number] DISCHARGE RECOMMENDATION: SNF
--- NOTE | 2023-10-01 18:17 | W.PM.PROGNOT ---
Date of Service Date of service: 10/01/23 Time of Service: 13:00 Assessment and Plan Assessment and plan (1) Intertrochanteric fracture of left hip: Status: Acute Assessment and plan: Status post surgical repair day 2 Will continue routine postoperative care. Pain management, bowel management, pulmonary toileting Apixaban continued PT following for discharge planning Qualifiers: Encounter type: initial encounter Fracture type: closed Fracture alignment: nondisplaced Qualified Code(s): S72.145A - Nondisplaced intertrochanteric fracture of left femur, initial encounter for closed fracture (2) PAF (paroxysmal atrial fibrillation): Status: Chronic Assessment and plan: She is fully anticoagulated on apixaban which will resume tomorrow morning (3) Recurrent urinary tract infection: Status: Acute Assessment and plan: On ceftriaxone while urine cultures pending (4) Hypokalemia: Status: Acute Assessment and plan: 3.8 - recheck in am (5) Discharge planning issues: Status: Acute Assessment and plan: Case management following for discharge planning case discussed ;with Dr Church Subjective Subjective Patient reports: still having pain and afebrile Interval history since last seen: Patient is awake alert no complaints. Denies nausea, abd pain, SOB or c/p Exam Narrative Exam Narrative: General: Patient appears appropriate for age, very hard of hearing, alert and oriented x 3. HEENT: Normocephalic, eyes with pupils equal and reactive to light symmetrically, extraocular movement intact and sclera anicteric. Oropharynx with moist mucosa Neck: Supple without JVD. Lungs: Fair aeration clear to auscultation Breast: Exam deferred. Heart: Irregularly irregular rhythm with normal rate. No appreciable murmur or gallop with distant heart sounds. Abdomen: Slightly obese contour, soft and nontender to palpation without palpable hepatosplenomegaly. Bowel sounds positive all quadrants. Genitalia/rectal: Exam deferred. Skin: Normal color, warm and dry. Extremities: Without clubbing, cyanosis or pitting edema with no edema both lower extremities. Good cap refill bilat LE Neuro: Cranial nerves II through XII gross intact with marked decreased hearing acuity, no focalized motor deficits. No tremor. Psych: Normal affect and mood. Objective Last Vital Signs Temp 37.4 C 10/01/23 15:08 Pulse 90 10/01/23 15:08 Resp 17 10/01/23 15:08 BP 102/61 10/01/23 15:08 Pulse Ox 97 10/01/23 15:08 Time Spent with Patient Time Spent with Patient: 25-34 minutes Time was spent: preparing to see the patient(eg.review tests), ordering medications,tests, procedures, referring, communicating with other health animal caretaker supervisor, indepentently interpreting results, counseling the patient and care coordination
[2023-10-01] MEDS: cefTRIAXone 1 GM/50 ML BAG IVPB (18:27)
[2023-10-01] MEDS: Pantoprazole 40 MG VIAL IVP (20:15)
[2023-10-01 23:50] VITALS: BP 108/63; PULSE 74; RESP 18; TEMP 36.8; O2SAT 91
[2023-10-02] MEDS: Levothyroxine 200 MCG TAB PO (06:03)
[2023-10-02] MEDS: Ketorolac 15 MG/ML VIAL IVP (06:24)
[2023-10-02 07:15] LABS: Abs Immature Grans 0.15 10^3/uL (0.0-0.06); Absolute Basophil Count 0.06 10^3/uL (0.0-0.2); Absolute Eosinophil Count 0.22 10^3/uL (0.0-0.7); Absolute Lymphocyte Count 1.83 10^3/uL (1.2-3.4); Absolute Neutrophil Count 5.67 10^3/uL (1.2-6.7); Basophils % 0.7 %; Eosinophils % 2.4 %; HCT 24.5 % (36.0-46.0); HGB 7.6 g/dL (11.2-15.7); Immature Grans % 1.6 %; Lymphocytes % 19.8 %; MCH 29.7 pg (27.0-33.0); MCV 96 fL (80-95); MPV 11.5 fL (8.0-11.0); Monocytes % 14.1 %; Neutrophils % 61.4 %; Platelet Count 243 10^3/uL (130-400); RBC 2.56 10^6/uL (3.93-5.22); RDW 17.4 % (11.7-14.6); RDW-SD 60.2 fL; WBC 9.23 10^3/uL (4.4-10.8)
[2023-10-02 07:25] LABS: BUN 24 mg/dL (7-18); Calcium 8.4 mg/dL (8.5-10.1); Chloride 106 mmol/L (98-107); Estimated GFR 55.55 (mL/min/1.73m2); Glucose 91 mg/dL (74-106); Magnesium 1.9 mg/dL (1.8-2.4); Potassium 3.8 mmol/L (3.5-5.1); Sodium 142 mmol/L (136-145)
[2023-10-02 07:27] VITALS: BP 107/62; PULSE 80; RESP 14; TEMP 36.7; O2SAT 93
[2023-10-02] MEDS: ACETAMINOPHEN 1,000 MG/100 ML BTL 400 MG IVPB (08:01)
[2023-10-02] MEDS: Normal Saline Flush 10 ML SYR IVP (08:01)
[2023-10-02] MEDS: Famotidine 20 MG TAB PO (08:02)
[2023-10-02] MEDS: dilTIAZem CD 120 MG CAPCR PO (08:02)
[2023-10-02] MEDS: Apixaban 5 MG TAB PO (08:02)
[2023-10-02] MEDS: Ferrous Sulfate 325 MG TAB PO (08:02)
[2023-10-02 09:31] LABS: HCT 25.7 % (36.0-46.0); HGB 8.1 g/dL (11.2-15.7)
--- NOTE | 2023-10-02 10:23 | CMDISCH_ITS ---
Date of service: 10/02/23 Time of Service: 10:00 LACE Index Scoring Tool Questions: Length of Stay (in days): 3 Was the patient admitted via the E.D.?: Yes Comorbidities: Any Tumor E.D. Visits: 1 Answers: Total Score: 9 Risk of Readmission: Low Risk Care Management Discharge Plan Reason for Hospitalization: Intertrochanteric Fracture Left Hip Discharge Plan: Cookie was transferred today to [facility] via facility wheel chair van. She will continue to receive PT services to increase her strength with goal of returning home. Her family intended to meet her there shortly after transfer. Patient/Family Education Needs: Review of discharge instructions, follow up plan and Ask me three. Pt and family are in full agreement with plan Services Needed at Discharge: Senior Living Facility ([facility] for continued PT) SDOH Health Related Social Needs: No Data to Display
--- NOTE | 2023-10-02 10:39 | W.PM.DS.N ---
Date of service: 10/02/23 Time of Service: 10:39 DS: Diagnosis Discharge Diagnosis (1) Intertrochanteric fracture of left hip: Status: Acute (2) PAF (paroxysmal atrial fibrillation): Status: Chronic (3) Recurrent urinary tract infection: Status: Acute (4) Hypokalemia: Status: Acute (5) Discharge planning issues: Status: Acute Discharge Plan Disposition Patient Disposition: Retirement Facility(SNF) Condition: Improving Discharge Details Reason For Visit: Intertrochanteric Fracture Left Hip Admit Date/Time: 09/29/23 21:01 Admit Provider: Valentín Garay Attending Provider: Valentín Garay Primary Care Provider: [facility] Course Hospital Course: The patient is an 83-year-old female with a medical history of atrial fibrillation on apixaban, urinary tract infections, and hypothyroidism, who presented to the [facility] ED on 09/29/2023 after a fall. She reported tripping over large slippers, leading her to fall on her bottom. She did not lose consciousness and had no preceding symptoms like chest pain or dizziness. Post-fall, she experienced pain in her low back, left hip, and bilateral knees. There were no other symptoms or complaints noted at the time of presentation.? The fall appeared mechanical in nature with no signs of syncope or orthostatic changes. Imaging performed included CT of the head, cervical spine, and pelvis, and x-rays of the left hip, femur, and knees. The CT did not reveal intracranial hemorrhage, and the x-rays showed an intertrochanteric fracture of the left femur but no acute abnormalities in the knees. Lab results were within normal limits except for an infectious UA, which prompted administration of ceftriaxone. Orthopedic consultation was obtained, and surgery was scheduled. Apixaban was held, and TXA was administered for bleeding prevention. Patient went to the OR with Dr Kohli and her hip was nailed.? Left hip dressings are clean, dry, and intact with appropriate rotation and appearance. Postoperative antibiotics were completed, and the Michael catheter was discontinued on postoperative day #1. Pain control was managed with multimodal analgesia. Physical therapy began with weight-bearing as tolerated and use of an assistive device. Mechanical DVT prophylaxis was continued with SCDs and/or SHRUTHI hose. Apixaban was resumed the following morning. Patient was treated for a UTI while hospitalized. She should continue oral Cephalexin 125 mg nightly. Patient's hemoglobin was low, however is now improving (8.1). Recommend CBC in 2-3 days (ordered). Discharge Plan: Physical Therapy: [facility] - Continue skilled PT for strengthening, balance, and functional mobility training. Follow-Up: Orthopedic follow-up in two weeks and continued physical therapy to assess functional recovery and address any complications. . Home Meds and New Rx's Prescriptions: New polyethylene glycol 3350 17 gram Powder In Packet 17 g PO DAILY PRN PRN (Reason: Constipation) Qty: 0 0RF docusate sodium [Colace] 100 mg Capsule 100 mg PO TID PRN PRNQty: 0 0RF Continued famotidine 20 mg tablet 20 mg PO BID Gaviscon 80-14.2 mg tablet,chewable PO ferrous sulfate [Feosol] 325 mg (65 mg iron) tablet 325 mg PO DAILY mecobalamin (vitamin B12) [B12 Active] 1,000 mcg tablet,chewable 1,000 mcg PO DAILY diltiazem HCl 120 mg capsule,extended release 24 hr 120 mg PO DAILY Eliquis 5 mg tablet 5 mg PO BID cephalexin 250 mg tablet 125 mg PO QHS Qty: 45 3RF Rx Instructions: Take 1/2 tab at night. ascorbate calcium (vitamin C) 500 mg tablet 600 mg PO DAILY cranberry 400 mg capsule 400 mg PO DAILY Rx Instructions: administer with a meal ibuprofen 200 mg tablet 200 mg PO Q6H PRN selenium sulfide 2.25 % shampoo 1 applic topical .weekly Rx Instructions: massage into affected area; leave on for 10 mins ; rinse off thoroughly levothyroxine [Synthroid] 200 mcg tablet 200 mcg PO DAILY triamcinolone acetonide 0.1 % cream 1 applic topical BID acetaminophen [Tylenol 8 Hour] 650 mg tablet extended release 1,300 mg PO Q12H cholecalciferol (vitamin D3) 10 mcg (400 unit) capsule 10 mcg PO DAILY Discharge Instructions Referrals: Christine Brunner [Primary Care Provider] - (post hospitalization appt) Jalen Simmons MD [ [facility] STAFF PHYSICIAN] - (2 weeks) Activity:: per PT Equipment/Supplies:: No Equipment Needed Diet:: As Tolerated Discharge Orders Other Ambulatory Orders: Complete Blood Count w/Diff (Routine) Timeframe: 3 Days Facility: [facility] - Location: Laboratory Outpatient - [facility] Ordered By: Aaliyah Ye DS: Summary Time Spent with Patient providing and/or coordinating discharge services: Greater than 30 minutes Status at Discharge Functional status at discharge: uses cane/walker Overall status at discharge: patient is progressing back to baseline Mental Status: mental status grossly normal Speech and Movement: speech and movement normal Mood: congruent mood Affect: normal affect Quality:SDOH Health Related Social Needs: No Data to Display Exam Narrative Exam Narrative: General: Patient appears appropriate for age, very hard of hearing, alert and oriented x 3. HEENT: Normocephalic, eyes with pupils equal and reactive to light symmetrically, extraocular movement intact and sclera anicteric. Oropharynx with moist mucosa Neck: Supple without JVD. Lungs: Fair aeration clear to auscultation Breast: Exam deferred. Heart: Irregularly irregular rhythm with normal rate. No appreciable murmur or gallop with distant heart sounds. Abdomen: Slightly obese contour, soft and nontender to palpation without palpable hepatosplenomegaly. Bowel sounds positive all quadrants. Genitalia/rectal: Exam deferred. Skin: Normal color, warm and dry. Extremities: Without clubbing, cyanosis or pitting edema with no edema both lower extremities. Good cap refill bilat LE Neuro: Cranial nerves II through XII gross intact with marked decreased hearing acuity, no focalized motor deficits. No tremor. Psych: Normal affect and mood. Psych Mental Status: mental status grossly normal Speech and Movement: speech and movement normal Mood: congruent mood Affect: normal affect DS: Data Vitals/I&O Vitals and I&O: Vital Signs Temperature 36.7 C 10/02/23 07:27 Temperature Source Tympanic 10/02/23 07:27 Pulse 80 10/02/23 07:27 Pulse Rhythm Regular 10/02/23 09:23 Pulse 114 H 09/30/23 13:41 Respiratory Rate 14 10/02/23 07:27 Respiratory Effort Normal, Non-Labored 10/02/23 09:23 Respiratory Depth Normal 10/02/23 09:23 Respiratory Pattern Normal 10/02/23 09:23 Blood Pressure 107/62 10/02/23 07:27 Blood Pressure Mean 86 09/30/23 13:45 Blood Pressure Position Supine 09/29/23 17:10 Pulse Oximetry 93 10/02/23 07:27 Respiratory End-tidal CO2 30 09/30/23 13:01 Oxygen Delivery Method Room Air 10/02/23 07:27 Oxygen Flow Rate 0 10/02/23 07:27 Pain Level 5 10/02/23 07:27 Intake & Output 10/01/23 10/01/23 10/02/23 11:59 23:59 11:59 Intake Total 150 / 620 470 / 620 Output Total 350 / 750 400 / 750 1300 / 1300 Balance -200 / -130 70 / -130 -1300 / -1300 Weight 72.439 kg Intake: IV 150 / 400 250 / 400 Oral 220 / 220 Output: Urine 350 / 750 400 / 750 1300 / 1300 Other: Urine Color Light Brunilda Yellow Yellow Urine Appearance Clear Cloudy Cloudy Sediment Sediment Comment Patient c/o urgency, pressure and unable to void Voiding Methods Bedside Commode Data Completed and Pending Labs on day of discharge: Labs from last 24 hours 10/02/23 10/02/23 09:20 06:10 WBC 9.23 RBC 2.56 L Hgb 8.1 L 7.6 L D Hct 25.7 L 24.5 L MCV 96 H MCH 29.7 MCHC 31.0 L RDW 17.4 H Plt Count 243 MPV 11.5 H Immature Gran % 1.6 Neutrophils % 61.4 Lymphocytes % 19.8 Monocytes % 14.1 Eosinophils % 2.4 Basophils % 0.7 Nucleated RBC % 0.0 Absolute Neutrophils 5.67 Absolute Lymphocytes 1.83 Absolute Monocytes 1.30 H Absolute Eosinophils 0.22 Absolute Basophils 0.06 Sodium 142 Potassium 3.8 Chloride 106 Carbon Dioxide 27.0 Anion Gap 9.0 BUN 24 H Creatinine 1.0 Est GFR (CKD-EPI 2020) 55.55 Glucose 91 Calcium 8.4 L Magnesium 1.9 PFSH All Active Problems (Updated 10/02/23 @ 09:50 by Aaliyah Ye NP) Discharge planning issues (Acute) Hypokalemia (Acute) PAF (paroxysmal atrial fibrillation) (Chronic) Intertrochanteric fracture of left hip (Acute 09/29/23) Cerumen impaction (Acute) Sensorineural hearing loss (Acute) Urinary frequency (Acute) Recurrent urinary tract infection (Acute) Medical History Blood glucose abnormal Abdominal tenderness Syncope Degeneration of lumbar intervertebral disc Cervical spondylosis Osteoarthritis Hyperkeratosis Psoriasis Dysuria Post-mastectomy lymphedema syndrome Hypertensive disorder Mixed hyperlipidemia Hypothyroidism Goiter Malignant lymphoma Carcinoma of thyroid Basal cell carcinoma Surgical History H/O basal cell carcinoma excision History of lymph node dissection of axilla H/O thyroidectomy H/O partial mastectomy History of left knee replacement Social History Smoking/Tobacco Use Status: Never Smoking risk assessment performed?: Yes Alcohol Intake: never Drug use: Never Substance use type: does not use Housing: house Time Spent with Patient Time Spent with Patient: <45 minutes Time was spent: preparing to see the patient(eg.review tests), ordering medications,tests, procedures, referring, communicating with other health care mgr, indepentently interpreting results, counseling the patient and care coordination
[2023-10-02 11:34] VITALS: BP 96/55; PULSE 63; RESP 14; TEMP 36.8; O2SAT 94
--- NOTE | 2023-10-02 11:40 | PT.INTREAT ---
PT Notes Visit Reasons: Intertrochanteric Fracture Left Hip Inpatient Physical Therapy Treatment Note [facility] Date: 10/02/2023 PRECAUTIONS:WBAT LLE SUBJECTIVE: Pt reports feeling good OBJECTIVE: Patient presents supine in bed with marsh in place. Patient [place] with improved hearing on left side. Patient noted to lip read as well.? PAIN: 03/23 post ambulation VITALS: ?Monitored by nursing Therapeutic Activities (92725v5): Direct one-on-one instruction in dynamic activities to improve functional performance. ? BED MOBILITY/TRANSFERS?Supine to sit : CGA toward the right Scooting to edge SBA ? Sit-stand: CGA of 1 with cues for hand placement (verbal and tactile)? Stand-sit: CGA of 1 with cues for hand placement (verbal and tactile)? Bed-Chair: Contact-guard assist with FWW cues for hands ? Chair-bed: CGA with FWW cues for hands Provided skilled cues and instruction on performance and technique throughout. Assistive Device: FWW ? Weight bearing: Weightbearing as tolerated left lower extremity Assist: CGA? Distance: 75 feet x 1?and 30 feet x 1 ? Deviation: Reciprocal pattern ? Therapeutic Exercises (41263r4): Direct one-on-one instruction in therapeutic exercises to develop strength, endurance, range of motion and flexibility. ? Exercises BLE 10 reps ? supine hip abduction, QS, heelslides seated Ankle pumps, LAQ, marching AAROM on Left ? Provided skilled instruction in proper exercise performance ASSESSMENT:? Pt demonstrates significant improvement in functional ability this session. Pt requires less assistance with bedmobility and transfers. She demonstrates stability during turns with fWW. She will be transferring to SNF this afternoon. PLAN: Continue PT until discharge to SNF TREATMENT CODE/TIME:18990; [id number] DISCHARGE RECOMMENDATION:SNF when medically appropriate.
[2023-10-02] MEDS: Acetaminophen 325 MG TAB 650 MG PO (13:30)
== END 2023-10-02 13:32 | disposition skilled nursing facility (03) | DRG 481 ==
LOC: ER 19:37 → MS 21:50
PROVIDERS: Nurse Practitioner Family; Student in an Organized Health Care Education/Training Program; Admitting Provider Family Medicine; Emergency Provider Emergency Medicine; PCP Nurse Practitioner; Visit Provider Family Medicine
PROC: 0QS706Z Reposition Left Upper Femur with Intramedullary Internal Fixation Device, Open Approach (ICD-10-PCS; CPT 27245; principal; 2023-09-30 12:45)
DX: N39.0 Urinary tract infection, site not specified; E87.6 Hypokalemia; I10 Essential (primary) hypertension; M51.36 Other intervertebral disc degeneration, lumbar region; S72.142A Displaced intertrochanteric fracture of left femur, initial encounter for closed fracture; M47.812 Spondylosis without myelopathy or radiculopathy, cervical region; L40.9 Psoriasis, unspecified; I97.2 Postmastectomy lymphedema syndrome; E78.2 Mixed hyperlipidemia; E89.0 Postprocedural hypothyroidism; Z96.652 Presence of left artificial knee joint; W01.0XXA Fall on same level from slipping, tripping and stumbling without subsequent striking against object, initial encounter
CPT/HCPCS: 27245; 00123; 36415; 51702; 80048; 80053; 85027; 93005; 96365; 96375; 97110; 97116; 97162; 97530; 99222; 99285; 70450; 72125; 72192; 73501; 73502; 73560; 81003; 81015; 83735; 84443; 84484; 85014; 85018; 85025; 85610; 87086; 93010; 99223; 99231; 99232; 99238; J0131; J0690; J0696; J1100; J1170; J1885; J2371; J2405; J2470; J2704; J3010; J3475; J3480

== ENCOUNTER 2023-10-02 16:18 | Emergency (ER) | payer MEDICARE, OTHER, SELFPAY ==
[2023-10-02 16:20] VITALS: BP 156/79; PULSE 102; RESP 15; TEMP 35.9; O2SAT 96
[2023-10-02 16:25] VITALS: BP 156/79; PULSE 102; RESP 15; TEMP 35.9; O2SAT 96
[2023-10-02 17:32] VITALS: BP 127/62; PULSE 82; RESP 16; O2SAT 94
[2023-10-02 17:57] VITALS: BP 128/68; PULSE 98; O2SAT 94
[2023-10-02 19:41] VITALS: BP 123/82; PULSE 76; TEMP 36.3
[2023-10-02] MEDS: Acetaminophen 500 MG TAB 1000 MG PO (20:32)
[2023-10-02] MEDS: oxyCODONE 5 MG TAB 2.5 MG PO (22:14)
[2023-10-02] MEDS: QUEtiapine 50 MG TAB PO (22:52)
--- NOTE | 2023-10-03 01:50 | ED.GENADUL_ITS ---
Discharge Plan Discharge Details Chief Complaint: Urinary Primary Care Provider: Christine Brunner ED Provider: Helen Luo Home Meds and New Rx's Prescriptions: No Action famotidine 20 mg tablet 20 mg PO BID Gaviscon 80-14.2 mg tablet,chewable PO ferrous sulfate [Feosol] 325 mg (65 mg iron) tablet 325 mg PO DAILY mecobalamin (vitamin B12) [B12 Active] 1,000 mcg tablet,chewable 1,000 mcg PO DAILY diltiazem HCl 120 mg capsule,extended release 24 hr 120 mg PO DAILY Eliquis 5 mg tablet 5 mg PO BID cephalexin 250 mg tablet 125 mg PO QHS Qty: 45 3RF Rx Instructions: Take 1/2 tab at night. ascorbate calcium (vitamin C) 500 mg tablet 600 mg PO DAILY cranberry 400 mg capsule 400 mg PO DAILY Rx Instructions: administer with a meal ibuprofen 200 mg tablet 200 mg PO Q6H PRN selenium sulfide 2.25 % shampoo 1 applic topical .weekly Rx Instructions: massage into affected area; leave on for 10 mins ; rinse off thoroughly levothyroxine [Synthroid] 200 mcg tablet 200 mcg PO DAILY triamcinolone acetonide 0.1 % cream 1 applic topical BID acetaminophen [Tylenol 8 Hour] 650 mg tablet extended release 1,300 mg PO Q12H cholecalciferol (vitamin D3) 10 mcg (400 unit) capsule 10 mcg PO DAILY polyethylene glycol 3350 17 gram Powder In Packet 17 g PO DAILY PRN PRN (Reason: Constipation) Qty: 0 0RF docusate sodium [Colace] 100 mg Capsule 100 mg PO TID PRN PRNQty: 0 0RF HPI General Mode of arrival: wheelchair . Date/Time Provider Initiated Documentation: 10/02/23 16:20 . Limitations to Documentation: no limitations . Information obtained by: patient, family and old records reviewed . HPI Narrative: MDM: In brief, this is an 83-year-old female patient who suffered a recent i ntertrochanteric fracture of her left hip, discharged from this hospital to rehab, who is presenting with family concerns for safety in the rehab as well as urinary retention. Regarding her urinary retention, my differential includes but is not limited to post catheter void trial failure, patient is already being treated for a UTI, making that less likely. Considered urethral spasm/bladder spasm. The patient is reassuringly hemodynamically appropriate, and afebrile, and her pain is adequately controlled with p.o. medicines. She has not had any associated subsequent trauma nor focal neurodeficits to increase my concern for spinal cord cause of her urinary retention. Upper bladder scan was performed after the patient attempted voiding, and a Michael catheter was placed and she had 300 mL of postvoid residual. The patient endorsed significant increase in her comfort after Michael catheter was placed. No provide her with oral medications for management of her ongoing hip fracture pain. ED Course: We had a discussion with the care management team, and because the patient's family took her out of the rehab facility, unfortunately her bed there is no longer available. The patient does not meet criteria for readmission as an inpatient given her lack of admittable diagnoses, and care management states that they will not be able to evaluate her nor make recommendations for [facility] rehabilitation locations this evening. I did discuss this patient's case with the hospitalist to agreed that there was no admittable diagnosis in this case, and so unfortunately the patient will have to be held in the emergency department as her family does not feel comfortable taking her home, as they reside up a flight of stairs and the patient has very poor mobility and is requiring of rehab level of services. I signed out care of this patient to the oncoming count team clerk prior to final placement by care management in the morning. I did provide her with a dose of Seroquel for some increasing confusion and agitation in the setting of her known memory problems, but she remained hemodynamically appropriate and otherwise well while under my care. At this time, the patient has had a full medical evaluation and is safe for discharge to home. They are hemodynamically stable, ambulatory, and tolerating PO. They are understanding of the follow-up plan and return precautions. They left our facility without incident. Helen Luo MD HPI: This is an 83-year-old female patient presenting for evaluation with her family for urinary retention. The patient was seen here for an in tertrochanteric hip fracture, and was discharged to [facility] and rehab. Her Michael catheter was removed prior to rehab, and the patient has had incomplete voiding, sensation of suprapubic fullness and discomfort, and the family's concern for urinary retention. Additionally, the family states that they were concerned for the patient's safety in the rehab facility, as there were no bed alarms, inadequate staff for a one-to-one sitter, and the patient is unable to be trusted to use her call marte in a safe way. For this reason, the family took the patient out of the rehab facility, and brou ght her here for an evaluation. The patient is currently being treated for urinary tract infection, the family does not recall which antibiotic she is getting, but chart review shows cephalexin. This is an otherwise isolated complaint and the patient is otherwise complaining of typical postoperative discomfort, has no other acute complaints at this time Exam: Gen: Awake and alert, in no apparent distress, pleasantly confused HEENT: Non-icteric sclera Neck: Supple Lungs: No apparent respiratory distress, normal respiratory effort. CV: Appears well perfused, strong distal pulses Abdomen: Non-distended, soft, tender to palpation of the suprapubic region with a small area of suprapubic fullness, no rigidity, rebound, or guarding MSK: Moves 4 extremities without apparent limitation in ROM, with the exception of the left lower extremity, which is appropriately tender, CSM's intact and symmetrical bilateral lower extremities Skin: Visualized skin without rashes, cyanosis. Neuro: Normal Gait, no obvious focal deficits or facial asymmetry. Speaks in full, clear sentences. Psych: Appropriate for situation. Related Data Home Medications ?Medication ?Instructions ?Recorded ?Confirmed acetaminophen 650 mg 1,300 mg PO Q12H 11/17/19 06/14/23 tablet,extended release (Tylenol 8 Hour) ascorbate calcium (vitamin C) 500 600 mg PO DAILY 11/17/19 06/14/23 mg tablet cholecalciferol (vitamin D3) 10 10 mcg PO DAILY 11/17/19 06/14/23 mcg (400 unit) capsule cranberry 400 mg capsule 400 mg PO DAILY 11/17/19 06/14/23 ibuprofen 200 mg tablet 200 mg PO Q6H PRN 11/17/19 06/14/23 levothyroxine 200 mcg tablet 200 mcg PO DAILY 11/17/19 06/14/23 (Synthroid) selenium sulfide 2.25 % shampoo 1 applic topical .weekly 11/17/19 06/14/23 triamcinolone acetonide 0.1 % 1 applic topical BID 10/06/20 05/03/24 topical cream Al hyd-Mg tr-alg ac-sod bicarb 80 tab PO 05/15/22 06/14/23 mg-14.2 mg chewable tablet (Gaviscon) famotidine 20 mg tablet 20 mg PO BID 05/15/22 06/14/23 apixaban 5 mg tablet (Eliquis) 5 mg PO BID 11/20/22 06/14/23 cephalexin 250 mg tablet 125 mg (1/2 x 250 mg) PO QHS #45 11/20/22 06/14/23 tabs diltiazem HCl 120 mg capsule,24 120 mg PO DAILY 11/20/22 06/14/23 hr,extended release mecobalamin (vitamin B12) 1,000 1,000 mcg PO DAILY 05/22/23 06/14/23 mcg chewable tablet (B12 Active) ferrous sulfate 325 mg (65 mg 325 mg PO DAILY 06/14/23 06/14/23 iron) tablet (Feosol) docusate sodium 100 mg capsule 100 mg PO TID PRN PRN #0 caps 10/02/23 (Colace) polyethylene glycol 3350 17 gram 17 g PO DAILY PRN PRN Constipation 10/02/23 oral powder packet #0 ea Previous Rx's ?Medication ?Instructions ?Recorded cephalexin 250 mg tablet 125 mg (1/2 x 250 mg) PO QHS #45 11/20/22 tabs docusate sodium 100 mg capsule 100 mg PO TID PRN PRN #0 caps 10/02/23 (Colace) polyethylene glycol 3350 17 gram 17 g PO DAILY PRN PRN Constipation 10/02/23 oral powder packet #0 ea Allergies Allergy/AdvReac Type Severity Reaction Status Date / Time chocolate flavor Allergy red/itchy Verified 09/29/23 17:15 eyes lisinopril Allergy cough Verified 09/29/23 17:15 General Stated Complaint: Urinary SINCERE: 3 Course Vital Signs Vital signs: Vital Signs Temperature 35.9 C L 10/02/23 16:20 Pulse 102 H 10/02/23 16:20 Respiratory Rate 15 10/02/23 16:20 Blood Pressure 156/79 H 10/02/23 16:20 Pulse Oximetry 96 10/02/23 16:20 Temperature 36.3 C L 10/02/23 19:41 Temperature Source Tympanic 10/02/23 19:41 Pulse 76 10/02/23 19:41 Pulse Rhythm Regular 10/02/23 19:41 Pulse Strength Normal 10/02/23 19:41 Respiratory Rate 16 10/02/23 17:32 Respiratory Effort Normal, Non-Labored 10/02/23 17:32 Respiratory Depth Normal 10/02/23 19:41 Respiratory Pattern Normal 10/02/23 17:32 Blood Pressure 123/82 10/02/23 19:41 Blood Pressure Mean 95 10/02/23 19:41 Blood Pressure Position Sitting 10/02/23 19:41 Pulse Oximetry 94 10/02/23 17:57 Oxygen Delivery Method Room Air 10/02/23 19:41 Oxygen Flow Rate 0 10/02/23 19:41 Pain Level 8 10/02/23 22:14 Medical Decision Making Quality:SDOH Health Related Social Needs: No Data to Display PFSH All Active Problems (Updated 10/03/23 @ 00:08 by FINESSE HAYDEN) Intertrochanteric fracture of left hip (Acute 09/29/23) Cerumen impaction (Acute) Sensorineural hearing loss (Acute) Urinary frequency (Acute) Recurrent urinary tract infection (Acute) Medical History Blood glucose abnormal Abdominal tenderness Syncope Degeneration of lumbar intervertebral disc Cervical spondylosis Osteoarthritis Hyperkeratosis Psoriasis Dysuria Post-mastectomy lymphedema syndrome Hypertensive disorder Mixed hyperlipidemia Hypothyroidism Goiter Malignant lymphoma Carcinoma of thyroid Basal cell carcinoma Surgical History H/O basal cell carcinoma excision History of lymph node dissection of axilla H/O thyroidectomy H/O partial mastectomy History of left knee replacement Social History Smoking/Tobacco Use Status: Never Smoking risk assessment performed?: Yes Alcohol Intake: never Drug use: Never Substance use type: does not use Housing: house
[2023-10-03] MEDS: oxyCODONE 5 MG TAB PO (02:17)
[2023-10-03] MEDS: Acetaminophen 325 MG TAB 650 MG PO (02:17)
[2023-10-03 07:13] VITALS: BP 111/67; PULSE 108; RESP 16; O2SAT 98
--- NOTE | 2023-10-03 08:53 | W.EDPROG ---
Date of service: 10/03/23 Time of Service: 08:53 Medical Decision Making Care assumed from off going provider. Patient is an 83-year-old female that presented with urinary retention. A Carter catheter was placed. Patient was recently admitted to the hospital for hip fracture and had been discharged to health and rehab. Unfortunately her family elected to remove her from the health and rehab and bring her home. Now they do not feel that they can care for her at home and are seeking other placement options. Patient has been in the emergency department since yesterday pending care management placement. Patient has been evaluated by care management and physical therapy in the emergency department. The plan for disposition is that the patient will go home with her family. Lift assist into the home has been arranged, as the patient cannot negotiate the stairs in her house. A walker has been ordered per physical therapy recommendation. Home health orders have been placed. This will include for nursing management of Carter catheter and physical therapy as well as Occupational Therapy. Patient's prescriptioN for the cephalexin was sent to her pharmacy, as at discharge he was sent to the rehab. She will go home with Carter catheter in place due to urinary retention. The patient has been referred to urology for follow-up and Carter catheter management. Quality:[facility] Health Related Social Needs: No Data to Display Sign Out Sign Out Data: Sign Out Comment: 83-year-old female patient with a recent intertrochanteric hip fracture, discharged to [facility], brought back by family for urinary retention and concerns for safety in that environment. Carter replaced, 300 postvoid residual. Unable to be admitted given lack of appropriate diagnosis, no longer has a bed at [facility], awaiting case management in a.m. Last updated by Helen Luo MD at 10/03/23 03:22 Sign Out Comment: Patient stable throughout the night, Carter catheter in place. Pending evaluation by case management for potential disposition. Last updated by Shadi Duenas DO at 10/03/23 08:05 Discharge Plan Disposition Patient Disposition: Home Discharge Details Clinical Impression: Recurrent urinary tract infection, Intertrochanteric fracture of left hip, Acute urinary retention Primary Care Provider: Christine Brunner ED Provider: Vinod Hopson Home Meds and New Rx's Prescriptions: Continued famotidine 20 mg tablet 20 mg PO BID Gaviscon 80-14.2 mg tablet,chewable PO ferrous sulfate [Feosol] 325 mg (65 mg iron) tablet 325 mg PO DAILY mecobalamin (vitamin B12) [B12 Active] 1,000 mcg tablet,chewable 1,000 mcg PO DAILY diltiazem HCl 120 mg capsule,extended release 24 hr 120 mg PO DAILY Eliquis 5 mg tablet 5 mg PO BID ascorbate calcium (vitamin C) 500 mg tablet 600 mg PO DAILY levothyroxine [Synthroid] 200 mcg tablet 200 mcg PO DAILY acetaminophen [Tylenol 8 Hour] 650 mg tablet extended release 1,300 mg PO Q12H cholecalciferol (vitamin D3) 10 mcg (400 unit) capsule 125 mcg PO DAILY docusate sodium [Colace] 100 mg Capsule 100 mg PO TID PRN PRNQty: 0 0RF cephalexin 250 mg tablet 125 mg PO QHS Qty: 45 3RF Rx Instructions: Take 1/2 tab at night. No Action cranberry 400 mg capsule 400 mg PO DAILY Rx Instructions: administer with a meal ibuprofen 200 mg tablet 200 mg PO Q6H PRN selenium sulfide 2.25 % shampoo 1 applic topical .weekly Rx Instructions: massage into affected area; leave on for 10 mins ; rinse off thoroughly triamcinolone acetonide 0.1 % cream 1 applic topical BID polyethylene glycol 3350 17 gram Powder In Packet 17 g PO DAILY PRN PRN (Reason: Constipation) Qty: 0 0RF Discharge Instructions Instructions: How to Care for Your Carter Catheter Additional Instructions: USE WALKER FOR AMBULATION LIFT ASSIST GETTING INTO HOME HAS BEEN ARRANGED HOME HEALTH, PT/OT HAVE BEEN ORDERED MEDICATIONS SENT TO PHARMACY REFERRAL TO UROLOGY FOR FOLLOW UP HAS BEEN SENT Referrals: Waylon Feldman MD [ [facility] STAFF PHYSICIAN] - (CARTER CATH MANAGEMENT, URINARY RETENTION. RECURRENT UTI )
--- NOTE | 2023-10-03 09:04 | NUR.NOTE ---
Nursing Note:staff repositioned patient onto her right side with 1 wedge
[2023-10-03] MEDS: Acetaminophen 500 MG TAB 1000 MG PO (09:57)
--- NOTE | 2023-10-03 10:57 | PT.INIE ---
PT Notes Visit Reasons: urinary blockage Physical Therapy Initial Evaluation Date: 10/03/2023 Referring Doctor: Dr Hopson PT Orders: PT CONSULT: Safety Consult for D/C Precautions: Marsh; WBAT LLE Patient Profile/Admitting Diagnosis: Pt is an 83-year-old female patient who suffered a recent intertrochanteric fracture of her left hip and underwent ORIF 09/29/23. She was discharged from this hospital to rehab on 10/02/23. She presented to ED with family concerns for safety in the rehab as well as urinary retention. Marsh catheter had been removed prior to transfer to rehab. In ED, the marsh catheter was reinserted and she was referred to PT for stair assessment for discharge to home with family. PMHX: Blood glucose abnormal Abdominal tenderness Syncope Degeneration of lumbar intervertebral disc Cervical spondylosis Osteoarthritis Hyperkeratosis Psoriasis Dysuria Post-mastectomy lymphedema syndrome Hypertensive disorder Mixed hyperlipidemia Hypothyroidism Goiter Malignant lymphoma Carcinoma of thyroid Basal cell carcinoma Surgical History H/O basal cell carcinoma excision History of lymph node dissection of axilla H/O thyroidectomy H/O partial mastectomy History of left knee replacement Social History/Home Situation: Pt will be discharge to family home with 4 steps to enter with one rail on the left to enter. Equipment Owned/DME: 4ww, commode Subjective: Pt reports her bottom hurts from sitting on the stretcher all night. Objective: General Observation: alert [place] female semireclined on stretcher drinking coffee. Mental Status: Alert oriented x 2, confusion, short term memory impairment Pain: 4/10 left hip ROM: Right Upper Extremity: WNL Left Upper Extremity: WNL Right Lower Extremity: WNL Left Lower Extremity:hip flexion 95 degrees, hip abduction 15 degrees, Knee and ankle WNL Strength: Right Upper Extremity: 4/5 Left Upper Extremity: 4/5 Right Lower Extremity:4/5 Left Lower Extremity: hip 3-/5, knee 3/5, ankle 3/5 Sensation: intact Bed Mobility/Transfers: Supine to sit min A for LLE Sit to stand CGA with cues for hands Stand to sit CGA with cues for hands Bed to chair CGA with FWW Gait: amb with FWW CGA step to pattern initially then progress to reciprocal pattern 50 feet. Stairs: 2 steps with 1 rail Max A of 1 step to pattern ; 2 steps with 2 rails min A of 1 step to pattern Balance: Static Sitting: Normal Dynamic Sitting: Good Static Standing: Fair Dynamic Standing: Fair - with BUE support Special Tests: Mobility Limitations Standardized Measure [facility] 6 clicks Basic Mobility Inpatient Short Form: Raw Score: 15 CMS Score: 57.70 % disability Informed Consent/Education: Patient instructed in purpose of PT consult. Family present and instructed in stair training however family unable to provide the level of assist to safely assist her up and down the stairs Assessment: Patient presents with clinical signs and symptoms consistent with current/admitting diagnoses that have resulted to mobility limitations, gait instability, generalized weakness, and impairment of motor control as demonstrated by the following impairment level findings: 1. Decreased strength to left hip major muscle groups 2. Impaired standing balance 3. Limitation of joint range of motion in left hip Impairments are contributing to the following functional limitations: 1. Inability to safely ambulate without assistive device 2. Increase completion time for mobility ADL performance 3. Increased fall risk Patient is assessed as a moderate complexity based on the following: History: 83-year-old female with impairment level findings, functional limitations, and past medical history as indicated above Examination: Demonstrable impairment in strength, balance, and mobility level with underlying impairments and functional limitations as documented above Presentation: stable Decision Making: moderate Goals: N/A. Plan of Care/Treatment Plan: N/A. . DISCHARGE RECOMMENDATIONS: Home with family and Home PT services. Pt will require lift assist into home as she is unable to ascend 4 steps with 1 rail independently and family is unable to provide level of assist she requires at this time. Family to purchase gait belt. Patient will be provide a FWW prior to discharge. TREATMENT CODE/TIME: 33824, [id number], [id number] Thank you for the opportunity to participate in the care of this patient. Please sign an return this page within 30 days if you agree with the above POC. Thank you! Physician Signature Date [facility]
--- NOTE | 2023-10-03 11:13 | NUR.NOTE ---
Addendum entered by Charleen Parekh 10/03/23 11:59: Home Health face to face form completed and faxed to [facility]. Original Note: Arranged for [facility] to assist the patient into her residence at the family request. Spoke with Gilberto. They will call [facility] when 15min out and will be met at the residence. Nursing Note:
[2023-10-03 11:17] VITALS: BP 135/71; PULSE 78; RESP 18; O2SAT 98
== END 2023-10-03 11:43 | disposition home or self-care (01) ==
PROVIDERS: Emergency Provider Emergency Medicine; PCP Nurse Practitioner
DX: R10.30 Lower abdominal pain, unspecified (principal); R33.8 Other retention of urine; Z87.440 Personal history of urinary (tract) infections
CPT/HCPCS: 00123; 51702; 51798; 97116; 97162; 97530; 99284; 99283

== ENCOUNTER → 2023-10-08 09:10 | Outpatient (BNVA) | payer MEDICARE, OTHER, SELFPAY | PROVIDERS: PCP Nurse Practitioner; Referring Provider Nurse Practitioner; Visit Provider Urology | DX: R33.8 Other retention of urine (principal) | CPT/HCPCS: 99442 ==

== ENCOUNTER 2023-10-15 15:23 | Outpatient (CLI) | payer MEDICARE, OTHER, SELFPAY ==
--- NOTE | 2023-10-15 09:38 | DI.RAD_ITS ---
Exam(s) XR HIP LT AP LAT ONLY EXAM: XR HIP LT AP LAT ONLY CLINICAL HISTORY: f/u left hip IMM. TECHNIQUE: 2D digital imaging was performed. COMPARISON: CR,XR XR HIP LT AP LAT ONLY from 09/29/2023 XA XR HIP LT IN OR from 09/30/2023 FINDINGS: Two views. There has been interval ORIF on 09/30/2023 Position of the retraction screw is slightly different than on immediate postop images but this appea rs to be most probably related to differences in rotation. Satisfactory alignment at the fracture si te noted. No hardware loosening and no evidence of osteomyelitis. IMPRESSION: Stable appearance DATA REPOSITORY: RADIATION DOSE DELIVERED:
== END 2023-10-15 15:24 | disposition home or self-care (01) ==
LOC: DIORS 15:23
PROVIDERS: PCP Nurse Practitioner; Visit Provider Student in an Organized Health Care Education/Training Program
DX: S72.145D Nondisplaced intertrochanteric fracture of left femur, subsequent encounter for closed fracture with routine healing; X58.XXXD Exposure to other specified factors, subsequent encounter
CPT/HCPCS: 73502

== ENCOUNTER → 2023-10-23 11:04 | Outpatient (BNVA) | payer MEDICARE, OTHER, SELFPAY | PROVIDERS: PCP Legal Medicine; Referring Provider Legal Medicine; Visit Provider Student in an Organized Health Care Education/Training Program | DX: S72.145D Nondisplaced intertrochanteric fracture of left femur, subsequent encounter for closed fracture with routine healing (principal); X58.XXXD Exposure to other specified factors, subsequent encounter ==

== ENCOUNTER → 2023-11-05 08:04 | Outpatient (BNVA) | payer MEDICARE, OTHER, SELFPAY | PROVIDERS: PCP Legal Medicine; Visit Provider Nurse Practitioner Gerontology | DX: R35.0 Frequency of micturition (principal); N39.0 Urinary tract infection, site not specified | CPT/HCPCS: 51798; 99213 ==

== ENCOUNTER 2023-11-13 15:10 | Outpatient (CLI) | payer MEDICARE, OTHER, SELFPAY ==
--- NOTE | 2023-11-13 11:15 | DI.RAD_ITS ---
Exam(s) XR HIP LT AP LAT ONLY EXAM: XR HIP LT AP LAT ONLY INDICATION: F/U HIP FX. COMPARISON: CR XR HIP LT AP LAT ONLY from 10/15/2023 TECHNIQUE: 2D digital imaging was performed. Two views. FINDINGS: There has been no change in fracture or hardware alignment. Fracture line on the faintly visible. N o new abnormalities. DATA REPOSITORY: RADIATION DOSE DELIVERED:
== END 2023-11-13 15:11 | disposition home or self-care (01) ==
LOC: DIORS 15:10
PROVIDERS: PCP Legal Medicine; Referring Provider Legal Medicine; Visit Provider Student in an Organized Health Care Education/Training Program
DX: S72.145D Nondisplaced intertrochanteric fracture of left femur, subsequent encounter for closed fracture with routine healing; X58.XXXD Exposure to other specified factors, subsequent encounter
CPT/HCPCS: 99024; 73502

== ENCOUNTER 2023-12-17 10:14 | Outpatient (CLI) | payer SELFPAY ==
--- NOTE | 2023-12-17 09:30 | DI.RAD_ITS ---
Exam(s) XR HIP LT AP LAT ONLY EXAM: XR HIP LT AP LAT ONLY CLINICAL HISTORY: F/U LEFT HIP IMN. TECHNIQUE: 2D digital imaging was performed. Two images were obtained. AP, lateral and oblique view s were obtained. COMPARISON: CR XR HIP LT AP LAT ONLY from 11/13/2023 FINDINGS: BONES: There are stable post operative changes present. There is again seen an intramedullary taras in the proximal left femur transfixing the fracture. No new fracture or dislocation. JOINTS: The joint spaces are well maintained. SOFT TISSUE: Normal. IMPRESSION: Stable postoperative changes. DATA REPOSITORY: RADIATION DOSE DELIVERED:
--- NOTE | 2023-12-17 09:45 | DI.RAD_ITS ---
Exam(s) XR KNEE LT 3V AP,LAT,MAURIZIO EXAM: XR KNEE LT 3V AP,LAT,MAURIZIO CLINICAL HISTORY: fall. TECHNIQUE: 2D digital imaging was performed. Three images were obtained. AP, lateral and merchant's views were obtained. COMPARISON: CR,XR XR KNEE LT 2V AP,LAT from 09/29/2023 CR XR HIP LT AP LAT ONLY from 12/17/2023 FINDINGS: BONES: There are stable post operative changes of a left total knee replacement present. No fracture or dislocation. JOINTS: The orthopedic hardware is in good position. No evidence of hardware loosening. SOFT TISSUE: Normal. IMPRESSION: Stable left total knee replacement. DATA REPOSITORY: RADIATION DOSE DELIVERED:
--- NOTE | 2023-12-17 09:45 | DI.RAD_ITS ---
Exam(s) XR KNEE RT 3V AP,LAT,MAURIZIO EXAM: XR KNEE RT 3V AP,LAT,MAURIZIO CLINICAL HISTORY: fall. TECHNIQUE: 2D digital imaging was performed of the right knee. Three views obtained. Merchant, AP an d lateral views were obtained. COMPARISON: CR,XR XR KNEE RT 2V AP,LAT from 09/29/2023 CR XR KNEE LT 3V AP,LAT,MAURIZIO from 12/17/2023 FINDINGS: BONES: No acute fracture is present. No bony destructive lesion is seen. 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 JOINTS: There is moderate narrowing of the medial femoral tibial joint. Small osteophytes are seen b oth medially and laterally. No joint effusion is seen. SOFT TISSUE: Normal. IMPRESSION: 1. Stable osteoarthritis of the right knee. 2. Absent patella. DATA REPOSITORY: RADIATION DOSE DELIVERED:
== END 2023-12-17 10:15 | disposition home or self-care (01) ==
LOC: DIORS 10:16
PROVIDERS: PCP Legal Medicine; Referring Provider Legal Medicine; Visit Provider Student in an Organized Health Care Education/Training Program
DX: S89.92XA Unspecified injury of left lower leg, initial encounter (principal); S89.91XA Unspecified injury of right lower leg, initial encounter; M25.552 Pain in left hip; Z96.652 Presence of left artificial knee joint; M17.11 Unilateral primary osteoarthritis, right knee
CPT/HCPCS: 73562; 73502

== ENCOUNTER 2023-12-17 11:15 | Emergency (ER) | payer MEDICARE, OTHER, SELFPAY ==
[2023-12-17] VITALS (39 sets, daily range): BP systolic 93–132; BP diastolic 33–81; PULSE 50–89; RESP 12–25; TEMP 36.3–36.4; O2SAT 92–99
--- NOTE | 2023-12-17 11:15 | RT.EKG_ITS ---
APPROVED REPORT Exam: Resting ECG Reason for Exam: fall Patient Location: E HR:70 bpm ECG Measurements Heart Rate 70 AXIS NM [id number] P [id number] QRSd 83 QRS -10 QT 403 T 36 QTc 437 Conclusion Atrial fibrillation...V-rate 61- 92, irreg A-activity I have reviewed and interpreted ECG and agree with software generated interpretation.
--- NOTE | 2023-12-17 12:15 | DI.CT_ITS ---
Exam(s) CT HEAD CERV SPINE FACIAL WO EXAM: CT HEAD CERV SPINE FACIAL WO CLINICAL HISTORY: left orbital trauma, HI, or eliquis. TECHNIQUE: Imaging Protocol: Axial computed tomography images with coronal and sagittal reformatted images were created and reviewed COMPARISON: No exams were available for comparison FINDINGS: CT Head: Ventricles and Extra axial spaces: Normal in size and morphology for the patient's age. Hemorrhage: None. Cerebral parenchyma: No evidence of acute hemorrhage or acute infarct. Stable [id number] atrop hy. Mild white matter changes of small vessel disease. Midline shift: None. Brainstem/Cerebellum: Normal. Calvarium: Normal. Visualized Paranasal sinuses/Mastoids: Clear. Soft Tissues: Mild soft tissue swelling around the left orbit. CT Face: Facial Bones: No acute fracture is noted in facial bones. Old right medial orbital oral fracture. O ld right nasal fracture. Sinuses and Mastoids: Unremarkable. Globes, extraocular muscles, optic nerves and retrobulbar fat: Normal. Upper aerodigestive tract: Normal. Mandible and bilateral temporomandibular joints: Degenerative changes at temporomandibular joints. Soft tissues: Normal. CT Cervical Spine: Bones: No acute fracture or subluxation. Degenerative disc changes and facet degenerative changes. Soft Tissues: Unremarkable. Lung Apices: Clear. IMPRESSION: 1. No acute intracranial process. 2. No acute fracture or subluxation in the cervical spine. 3. No acute facial fracture. Mild soft tissue swelling around the left orbit. Old right nasal frac ture and right medial orbital wall fracture. RADIATION DOSE DELIVERED: Total DLP DATA REPOSITORY: All CT scans at this facility are submitted to the National Radiology Data Registry (NRDR) Dose Index Registry (DIR) with the [employer] (ACR). RADIATION OPTIMIZATION: All CT scans at this facility use at least one of these dose optimization te chniques: automated exposure control; mA and/or kV adjustment per patient size (includes targeted exa ms where dose is matched to clinical indication); or iterative reconstruction.
--- NOTE | 2023-12-17 12:15 | DI.RAD_ITS ---
Exam(s) XR CHEST 2V PA LATERAL EXAM: XR CHEST 2V PA LATERAL CLINICAL HISTORY: weakness, TECHNIQUE: 2D digital imaging was performed of the chest. Two images were obtained. PA and lateral views were obtained. COMPARISON: No exams were available for comparison FINDINGS: MEDIASTINUM: Normal. HEART: Normal. PULMONARY VASCULATURE: Normal. LUNGS: There is a faint nodular density in the right upper lobe overlying the right 5th rib posterior ly. The lungs are otherwise clear. PLEURAL SPACE: No pleural effusion or pneumothorax. BONE:Within normal limits for the patient's age. OTHER FINDINGS:Normal. IMPRESSION: 1. No acute pulmonary findings. 2. Faint nodule in the right upper lobe. CT scan of the chest may be obtained if clinically appropri ate. DATA REPOSITORY: RADIATION DOSE DELIVERED:
[2023-12-17 13:15] LABS: Abs Immature Grans 0.06 10^3/uL (0.0-0.06); Absolute Basophil Count 0.06 10^3/uL (0.0-0.2); Absolute Eosinophil Count 0.06 10^3/uL (0.0-0.7); Absolute Lymphocyte Count 1.62 10^3/uL (1.2-3.4); Basophils % 0.5 %; Eosinophils % 0.5 %; HCT 33.8 % (36.0-46.0); HGB 10.7 g/dL (11.2-15.7); Immature Grans % 0.5 %; Lactate 0.9 mmol/L (0.6-1.4); Lymphocytes % 14.5 %; MCH 29.1 pg (27.0-33.0); MCHC 31.7 % (32.0-36.0); MCV 92 fL (80-95); MPV 11.2 fL (8.0-11.0); Monocytes % 14.3 %; Neutrophils % 69.7 %; Platelet Count 238 10^3/uL (130-400); RBC 3.68 10^6/uL (3.93-5.22); RDW 16.6 % (11.7-14.6); RDW-SD 55.8 fL; WBC 11.15 10^3/uL (4.4-10.8)
[2023-12-17 13:16] LABS: Absolute Monocyte Count 1.59 10^3/uL (0.1-0.8); Absolute Neutrophil Count 7.77 10^3/uL (1.2-6.7)
[2023-12-17] MEDS: Lactated Ringers 500 ML IV (13:30)
[2023-12-17 13:37] LABS: ALT 16 U/L (14-59); AST 18 U/L (15-37); Albumin 2.8 g/dL (3.4-5.0); Alkaline Phosphatase 102 U/L (46-116); Anion Gap 7.2 mmol/L (3-11); BUN 27 mg/dL (7-18); CO2 29.8 mmol/L (21.0-32.0); Calcium 8.9 mg/dL (8.5-10.1); Chloride 107 mmol/L (98-107); Estimated GFR 55.55 (mL/min/1.73m2); Glucose 96 mg/dL (74-106); Potassium 3.2 mmol/L (3.5-5.1); Sodium 144 mmol/L (136-145); Total Protein 7.1 g/dL (6.4-8.2)
[2023-12-17 13:48] LABS: Magnesium 1.9 mg/dL (1.8-2.4); TSH (W/Ref FT4) 0.18 uIU/mL (0.36-3.74)
[2023-12-17 14:08] LABS: FREE T4 1.66 ng/dL (0.76-1.46)
[2023-12-17 14:16] LABS: Bilirubin Negative (Negative); Blood Small (Negative); Clarity Cloudy (Clear); Glucose Negative (Negative); Ketones Negative (Negative); Leukocyte Esterase Large (Negative); Nitrite Positive (Negative); Specific Gravity 1.015 (1.005-1.025); Urobilinogen 0.2 mg/dL (Up to 0.2)
[2023-12-17 14:27] LABS: Epithelial Cells Few HPF (Negative); RBC 20-50 HPF (0-2); WBC >50 HPF (0-5)
[2023-12-17 14:28] LABS: Bacteria Packed HPF (Negative); C & S Indicated? Yes; Casts Negative LPF (Negative); Crystals Negative HPF (Negative); Mucus Negative (Negative)
--- NOTE | 2023-12-17 15:13 | ED.GENADUL_ITS ---
Discharge Plan Disposition Patient Disposition: Home Condition: Stable Discharge Details Clinical Impression: Acute UTI, Right knee pain Primary Care Provider: Wendy Agee ED Provider: Geovanna Otto Home Meds and New Rx's Prescriptions: New nitrofurantoin monohyd/m-cryst [Macrobid] 100 mg capsule 100 mg PO BID Qty: 20 0RF Rx Instructions: must administer with a meal/food Continued famotidine 20 mg tablet 20 mg PO BID Gaviscon 80-14.2 mg tablet,chewable 1 tab PO PRN ferrous sulfate [Feosol] 325 mg (65 mg iron) tablet 325 mg PO DAILY mecobalamin (vitamin B12) [B12 Active] 1,000 mcg tablet,chewable 1,000 mcg PO DAILY donepezil 10 mg tablet 10 mg PO DAILY quetiapine 25 mg tablet 25 mg PO DAILY diltiazem HCl 120 mg capsule,extended release 24 hr 120 mg PO DAILY Eliquis 5 mg tablet 5 mg PO BID ascorbate calcium (vitamin C) 500 mg tablet 600 mg PO DAILY cranberry 400 mg capsule 400 mg PO DAILY Rx Instructions: administer with a meal ibuprofen 200 mg tablet 200 mg PO Q6H PRN selenium sulfide 2.25 % shampoo 1 applic topical .weekly Rx Instructions: massage into affected area; leave on for 10 mins ; rinse off thoroughly levothyroxine [Synthroid] 200 mcg tablet 200 mcg PO DAILY triamcinolone acetonide 0.1 % cream 1 applic topical BID acetaminophen [Tylenol 8 Hour] 650 mg tablet extended release 1,300 mg PO Q12H cholecalciferol (vitamin D3) 10 mcg (400 unit) capsule 125 mcg PO DAILY polyethylene glycol 3350 17 gram Powder In Packet 17 g PO DAILY PRN PRN (Reason: Constipation) Qty: 0 0RF docusate sodium [Colace] 100 mg Capsule 100 mg PO TID PRN PRNQty: 0 0RF Discharge Instructions Instructions: Knee pain, Urinary tract infection - Discharge instructions Additional Instructions: Take the antibiotic as prescribed, yogurt daily while on antibiotic Use your knee immobilizer and walker whenever you ambulate Follow up with the urologist listed below and return earlier should you have fever chills or any new or worsening complaints, make sure you have at least eight 8 ounce glasses of water daily Referrals: Waylon Feldman MD [ [facility] STAFF PHYSICIAN] - Wendy Agee [Primary Care Provider] - 1 day Discharge Data Discharge Date/Time-TO BE ENTERED AT DEPARTURE: 12/17/23 16:16 HPI General Date/Time Provider Initiated Documentation: 12/17/23 11:43 . HPI Narrative: This 83-year-old female with history of total knee replacements, frequent falls, chronic anticoagulation. Presents secondary to suspected fall last night on Eliquis. Denies any pain complaints aside from right knee. Denies any symptoms prior to falling and fell at the orthopedics office just prior to arrival. Denies any specific complaints, status post recent admission for urosepsis. Related Data Home Medications ?Medication ?Instructions ?Recorded ?Confirmed acetaminophen 650 mg 1,300 mg PO Q12H 11/17/19 12/17/23 tablet,extended release (Tylenol 8 Hour) ascorbate calcium (vitamin C) 500 600 mg PO DAILY 11/17/19 12/17/23 mg tablet cholecalciferol (vitamin D3) 10 125 mcg PO DAILY 11/17/19 12/17/23 mcg (400 unit) capsule cranberry 400 mg capsule 400 mg PO DAILY 11/17/19 12/17/23 ibuprofen 200 mg tablet 200 mg PO Q6H PRN 11/17/19 12/17/23 levothyroxine 200 mcg tablet 200 mcg PO DAILY 11/17/19 12/17/23 (Synthroid) selenium sulfide 2.25 % shampoo 1 applic topical .weekly 11/17/19 12/17/23 triamcinolone acetonide 0.1 % 1 applic topical BID 11/17/19 12/17/23 topical cream Al hyd-Mg tr-alg ac-sod bicarb 80 1 tab PO PRN 05/15/22 12/17/23 mg-14.2 mg chewable tablet (Gaviscon) famotidine 20 mg tablet 20 mg PO BID 05/15/22 12/17/23 apixaban 5 mg tablet (Eliquis) 5 mg PO BID 11/20/22 12/17/23 diltiazem HCl 120 mg capsule,24 120 mg PO DAILY 11/20/22 12/17/23 hr,extended release mecobalamin (vitamin B12) 1,000 1,000 mcg PO DAILY 05/22/23 12/17/23 mcg chewable tablet (B12 Active) ferrous sulfate 325 mg (65 mg 325 mg PO DAILY 06/14/23 12/17/23 iron) tablet (Feosol) docusate sodium 100 mg capsule 100 mg PO TID PRN PRN #0 caps 10/02/23 12/17/23 (Colace) polyethylene glycol 3350 17 gram 17 g PO DAILY PRN PRN Constipation 10/02/23 12/17/23 oral powder packet #0 ea donepezil 10 mg tablet 10 mg PO DAILY 12/17/23 12/17/23 nitrofurantoin 100 mg PO BID #20 caps 12/17/23 monohydrate/macrocrystals 100 mg capsule (Macrobid) quetiapine 25 mg tablet 25 mg PO DAILY 12/17/23 12/17/23 Previous Rx's ?Medication ?Instructions ?Recorded docusate sodium 100 mg capsule 100 mg PO TID PRN PRN #0 caps 10/02/23 (Colace) polyethylene glycol 3350 17 gram 17 g PO DAILY PRN PRN Constipation 10/02/23 oral powder packet #0 ea nitrofurantoin 100 mg PO BID #20 caps 12/17/23 monohydrate/macrocrystals 100 mg capsule (Macrobid) Allergies Allergy/AdvReac Type Severity Reaction Status Date / Time chocolate flavor Allergy red/itchy Verified 12/17/23 11:27 eyes lisinopril Allergy cough Verified 12/17/23 11:27 General Stated Complaint: Trauma SINCERE: 3 Exam Narrative Exam Narrative: Alert and oriented 83-year-old female, periorbital ecchymosis on left without crepitus, oropharynx patent, uvula midline, pupils equal round reactive to light and accommodation, lungs clear to auscultation, cardiac rate rhythm regular, no abdominal tenderness, GCS 15 able to follow all basic commands no cervical spine tenderness, ambulatory with antalgic gait, right knee with ecchymosis and abrasion no obvious deformity, neurovascularly intact Course Vital Signs Vital signs: Vital Signs Temperature 36.4 C 12/17/23 11:22 Pulse 67 12/17/23 11:22 Respiratory Rate 12 12/17/23 11:22 Blood Pressure 93/54 L 12/17/23 11:22 Pulse Oximetry 94 12/17/23 11:22 Temperature 36.4 C 12/17/23 11:22 Temperature Source Oral 12/17/23 11:22 Pulse 57 L 12/17/23 15:07 Respiratory Rate 12 12/17/23 11:22 Respiratory Effort Normal, Non-Labored 12/17/23 11:41 Respiratory Depth Normal 12/17/23 11:41 Respiratory Pattern Normal 12/17/23 11:41 Blood Pressure 118/57 L 12/17/23 15:07 Blood Pressure Position Sitting 12/17/23 11:22 Pulse Oximetry 94 12/17/23 11:22 Oxygen Delivery Method Room Air 12/17/23 11:22 Oxygen Flow Rate 0 12/17/23 11:22 Pain Level 0 12/17/23 11:41 Lab/Test Results Lab/Test Results: 12/17/23 14:00 Urine - Reflex from Ua Urine Culture - Pending 12/17/23 13:50 Blood Blood Culture - Pending 12/17/23 13:05 Blood Blood Culture - Pending Laboratory Tests Range/Units 12/17/23 12/17/23 13:05 14:00 WBC (4.4-10.8) 10^3/uL 11.15 H RBC (3.93-5.22) 10^6/uL 3.68 L Hgb (11.2-15.7) g/dL 10.7 L Hct (36.0-46.0) % 33.8 L MCV (80-95) fL 92 MCH (27.0-33.0) pg 29.1 MCHC (32.0-36.0) % 31.7 L RDW (11.7-14.6) % 16.6 H Plt Count (130-400) 10^3/uL 238 MPV (8.0-11.0) fL 11.2 H Immature Gran % % 0.5 Neutrophils % % 69.7 Lymphocytes % % 14.5 Monocytes % % 14.3 Eosinophils % % 0.5 Basophils % % 0.5 Nucleated RBC % (0.0-0.3) % 0.0 Absolute Neutrophils (1.2-6.7) 10^3/uL 7.77 H Absolute Lymphocytes (1.2-3.4) 10^3/uL 1.62 Absolute Monocytes (0.1-0.8) 10^3/uL 1.59 H Absolute Eosinophils (0.0-0.7) 10^3/uL 0.06 Absolute Basophils (0.0-0.2) 10^3/uL 0.06 VBG Lactate (0.6-1.4) mmol/L 0.9 Sodium (136-145) mmol/L 144 Potassium (3.5-5.1) mmol/L 3.2 L Chloride (98-107) mmol/L 107 Carbon Dioxide (21.0-32.0) mmol/L 29.8 Anion Gap (3-11) mmol/L 7.2 BUN (7-18) mg/dL 27 H Creatinine (0.55-1.02) mg/dL 1.0 Est GFR (CKD-EPI 2020) (mL/min/1.73m2) 55.55 Glucose (74-106) mg/dL 96 Calcium (8.5-10.1) mg/dL 8.9 Magnesium (1.8-2.4) mg/dL 1.9 Total Bilirubin (0.2-1.0) mg/dL 0.80 AST (15-37) U/L 18 ALT (14-59) U/L 16 Alkaline Phosphatase (46-116) U/L 102 Total Protein (6.4-8.2) g/dL 7.1 Albumin (3.4-5.0) g/dL 2.8 L Procalcitonin ng/mL 0.5 TSH (0.36-3.74) uIU/mL 0.18 L Free T4 (0.76-1.46) ng/dL 1.66 H Urine Color (Yellow) Yellow Urine Clarity (Clear) Cloudy Urine pH (5-8) 6.0 Ur Specific [place] (1.005-1.025) 1.015 Urine Protein (Neg-Trace) mg/dL 100 H Urine Ketones (Negative) mg/dL Negative Urine Blood (Negative) Small H Urine Nitrite (Negative) Positive H Urine Bilirubin (Negative) Negative Urine Urobilinogen (Up to 0.2) mg/dL 0.2 Ur Leukocyte Esterase (Negative) Large H Urine RBC (0-2) HPF 20-50 H Urine WBC (0-5) HPF >50 H Ur Epithelial Cells (Negative) HPF Few Urine Crystals (Negative) HPF Negative Urine Bacteria (Negative) HPF Packed Urine Casts (Negative) LPF Negative Urine Mucus (Negative) Negative Ur Culture Indicated? Yes Urine Glucose (Negative) mg/dL Negative Medical Decision Making 83-year-old female presenting in no acute distress with a initially labile blood pressure, after food, fluids blood pressure 118/81, ambulatory steady gait, orthostatics negative. Given patient's recent urinary tract infection I did check a urinalysis which does show evidence of recurrent UTI. It looks like patient was prescribed Keflex for her last urinary tract infection and was resistant to Keflex based on Klebsiella positive micro. Patient has a normal CT head and cervical spine which was ordered secondary to head injury last evening. She also has a normal-appearing x-ray of her right knee. She was placed in a splint for comfort and referred to orthopedics. She is encouraged to take Macrobid, her creatinine is within normal limits. Return precautions reviewed and patient expressed understanding, discharged home in the care of her family and DPOA. Quality:SDOH Health Related Social Needs: No Data to Display PFSH All Active Problems (Updated 12/17/23 @ 15:32 by LAURO Willis) Right knee pain (Acute) Acute UTI (Acute) History of total left knee replacement (Acute) Arthritis of right knee (Acute) Intertrochanteric fracture of left hip (Acute 09/29/23) Cerumen impaction (Acute) Sensorineural hearing loss (Acute) Urinary frequency (Acute) Recurrent urinary tract infection (Acute) Medical History Blood glucose abnormal Abdominal tenderness Syncope Degeneration of lumbar intervertebral disc Cervical spondylosis Osteoarthritis Hyperkeratosis Psoriasis Dysuria Post-mastectomy lymphedema syndrome Hypertensive disorder Mixed hyperlipidemia Hypothyroidism Goiter Malignant lymphoma Carcinoma of thyroid Basal cell carcinoma Surgical History H/O basal cell carcinoma excision History of lymph node dissection of axilla H/O thyroidectomy H/O partial mastectomy History of left knee replacement Social History Smoking/Tobacco Use Status: Never Smoking risk assessment performed?: Yes Alcohol Intake: never Drug use: Never Substance use type: does not use Housing: house
[2023-12-18 06:17] LABS: Procalcitonin < 0.1 ng/mL
--- NOTE | 2023-12-18 08:44 | NUR.NOTE ---
Accessed Pt chart to complete filling out the Surg[facility] document
--- NOTE | 2024-01-08 15:21 | NUR.NOTE ---
Accessed patient chart to print provider note to be faxed to [facility] for billing purposes. Nursing Note:
== END 2023-12-17 16:16 | disposition home or self-care (01) ==
PROVIDERS: Emergency Provider Physician Assistant; PCP Legal Medicine
DX: M25.561 Pain in right knee (principal); N39.0 Urinary tract infection, site not specified; I48.0 Paroxysmal atrial fibrillation; E78.5 Hyperlipidemia, unspecified; F03.90 Unspecified dementia, unspecified severity, without behavioral disturbance, psychotic disturbance, mood disturbance, and anxiety; Z79.01 Long term (current) use of anticoagulants; Z96.653 Presence of artificial knee joint, bilateral
CPT/HCPCS: 36415; 80053; 84145; 87040; 87077; 93005; 99285; 70450; 70486; 71046; 72125; 81003; 81015; 83605; 83735; 84439; 84443; 85025; 87086; 87186; 93010; 99284